=== PATIENT | male | born 1995 | race Caucasian/White ===

== ENCOUNTER 2019-01-11 10:54 | Emergency (ER) | payer BC ==
[2019-01-11 11:43] LABS: Urine Blood NEGATIVE (NEG); Urine Glucose 2+ (NEG); Urine Protein NEGATIVE (NEG); Urine pH 5.5 (5.0-7.0)
--- NOTE | 2019-01-11 11:59 | ER ---
Nurse's Notes [facility] Name: Greyson Correia Age: 23 yrs Sex: Male : 1995 Arrival Date: 01/11/2019 Time: 11:04 Bed 12 Private MD: Diagnosis: Muscle spasm of back Presentation: 01/11 11:10 Presenting complaint: Right sided low back pain and headache x 2 weeks. Transition of hb care: patient was not received from another setting of care. Onset of symptoms was December 26, 2018. Risk Assessment: Do you want to hurt yourself or someone else? Patient reports no desire to harm self or others. Care prior to arrival: None. 11:10 Method Of Arrival: Ambulatory hb 11:10 Acuity: ROGELIO 4 hb 11:45 Initial Sepsis Screen: Does the patient meet any 2 criteria? No. Patient's initial ss sepsis screen is negative. Does the patient have a suspected source of infection? No. Patient's initial sepsis screen is negative. Historical: - Allergies: 11:12 No Known Allergies; hb - Home Meds: 11:12 humalog - pump [Active]; hb - PMHx: 11:12 Diabetes - IDDM; hb - PSHx: 11:12 Insulin Pump; hb - Immunization history:: Adult Immunizations up to date. - Social history:: Smoking status: Patient uses tobacco products, smokes one-half pack cigarettes per day. - Ebola Screening: : No symptoms or risks identified at this time. Screenin:30 Abuse screen: Denies threats or abuse. Denies injuries from another. Nutritional ss screening: No deficits noted. Tuberculosis screening: Never had TB. Fall Risk None identified. Assessment: 11:45 General: Appears in no apparent distress. comfortable, Behavior is calm, cooperative. ss Pain: Complains of pain in right low back Pain currently is 3 out of 10 on a pain scale. Neuro: Level of Consciousness is awake, alert, obeys commands, Oriented to person, place, time, situation. Cardiovascular: Capillary refill < 3 seconds is brisk in bilateral fingers. Respiratory: Airway is patent Respiratory effort is even, unlabored, Respiratory pattern is regular, symmetrical. GI: Abdomen is non-distended, Patient currently denies diarrhea, nausea, vomiting. : No signs and/or symptoms were reported regarding the genitourinary system. Denies burning with urination, urinary frequency. EENT: Nares are clear Oral mucosa is moist. Throat is clear. Derm: Skin is intact, is healthy with good turgor, Skin is dry, Skin is pink, warm \T\ dry. normal. Musculoskeletal: Circulation, motion, and sensation intact. Range of motion: intact in all extremities, Swelling absent. 12:07 Reassessment: Patient appears in no apparent distress at this time. Patient and/or ss family updated on plan of care and expected duration. Pain level reassessed. Patient is alert, oriented x 3, equal unlabored respirations, skin warm/dry/pink. Vital Signs: 11:12 BP 138 / 93; Pulse 104; Resp 16; Temp 98.4; Pulse Ox 98% on R/A; Weight 68.04 kg; hb Height 5 ft. 9 in. (175.26 cm); Pain 3/10; 11:12 Body Mass Index 22.15 (68.04 kg, 175.26 cm) hb ED Course: 11:04 Patient arrived in ED. mr 11:11 Triage completed. 11:12 Arm band placed on. 11:19 Vini Diaz PA is PHCP. [facility] 11:19 Robert Lowe MD is Attending Physician. jr 11:23 Ligia Montez, BRENDA is Primary Nurse. 12:07 No provider procedures requiring assistance completed. Patient did not have IV access ss during this emergency room visit. 14:30 Patient has correct armband on for positive identification. Placed in gown. Call light ss in reach. Administered Medications: No medications were administered Outcome: 11:58 Discharge ordered by . jrAyan 12:07 Discharged to home ambulatory. ss 12:07 Condition: good 12:07 Discharge instructions given to patient, family, Instructed on discharge instructions, follow up and referral plans. medication usage, Demonstrated understanding of instructions, follow-up care, medications. 12:07 Patient left the ED. ss Signatures: Wray, Alessia mr Ligia Montez, BRENDA RN Vini Diaz PA PA jr Sondra Green RN RN
--- NOTE | 2019-01-11 12:00 | EDPHYS ---
Physician Documentation [facility] Name: Greyson Correia Age: 23 yrs Sex: Male : 1995 Arrival Date: 01/11/2019 Time: 11:04 Bed 12 Private MD: ED Physician Robert Lowe HPI: 01/11 11:54 This 23 yrs old Male presents to ER via Ambulatory with complaints of Back jr8 Pain. 11:54 The patient presents with pain that is acute. The symptoms are located in the right mid jr8 back and right low back. Onset: The symptoms/episode began/occurred gradually, 2 week(s) ago. The pain does not radiate. Associated signs and symptoms: The patient has no apparent associated signs or symptoms. The problem was sustained from unknown cause. Modifying factors: The patient symptoms are alleviated by nothing, the patient symptoms are aggravated by standing, walking. Severity of symptoms: At their worst the symptoms were moderate, in the emergency department the symptoms have improved, moderately. The patient has not experienced similar symptoms in the past. The patient has not recently seen a physician. Sudden onset pain to right back from unknown cause. Last thing patient could think of that could have caused pain was long car ride with sleeping in odd positions. Has been trying OTC medication without relief . Historical: - Allergies: 11:12 No Known Allergies; hb - Home Meds: 11:12 humalog - pump [Active]; hb - PMHx: 11:12 Diabetes - IDDM; hb - PSHx: 11:12 Insulin Pump; hb - Immunization history:: Adult Immunizations up to date. - Social history:: Smoking status: Patient uses tobacco products, smokes one-half pack cigarettes per day. - Ebola Screening: : No symptoms or risks identified at this time. ROS: 11:54 Eyes: Negative for injury, pain, redness, and discharge, ENT: Negative for injury, jr8 pain, and discharge, Neck: Negative for injury, pain, and swelling, Cardiovascular: Negative for chest pain, palpitations, and edema, Respiratory: Negative for shortness of breath, cough, wheezing, and pleuritic chest pain, Abdomen/GI: Negative for abdominal pain, nausea, vomiting, diarrhea, and constipation, MS/Extremity: Negative for injury and deformity, Skin: Negative for injury, rash, and discoloration, Neuro: Negative for headache, weakness, numbness, tingling, and seizure. 11:54 Back: Positive for pain at rest, pain with movement, Negative for radiated pain. Exam: 11:54 Eyes: Pupils equal round and reactive to light, extra-ocular motions intact. Lids and jr8 lashes normal. Conjunctiva and sclera are non-icteric and not injected. Cornea within normal limits. Periorbital areas with no swelling, redness, or edema. ENT: Nares patent. No nasal discharge, no septal abnormalities noted. Tympanic membranes are normal and external auditory canals are clear. Oropharynx with no redness, swelling, or masses, exudates, or evidence of obstruction, uvula midline. Mucous membranes moist. Neck: Trachea midline, no thyromegaly or masses palpated, and no cervical lymphadenopathy. Supple, full range of motion without nuchal rigidity, or vertebral point tenderness. No Meningismus. Cardiovascular: Regular rate and rhythm with a normal S1 and S2. No gallops, murmurs, or rubs. Normal PMI, no JVD. No pulse deficits. Respiratory: Lungs have equal breath sounds bilaterally, clear to auscultation and percussion. No rales, rhonchi or wheezes noted. No increased work of breathing, no retractions or nasal flaring. Abdomen/GI: Soft, non-tender, with normal bowel sounds. No distension or tympany. No guarding or rebound. No evidence of tenderness throughout. Back: No spinal tenderness. No costovertebral tenderness. Full range of motion. Skin: Warm, dry with normal turgor. Normal color with no rashes, no lesions, and no evidence of cellulitis. MS/ Extremity: Pulses equal, no cyanosis. Neurovascular intact. Full, normal range of motion. Neuro: Awake and alert, GCS 15, oriented to person, place, time, and situation. Cranial nerves II-XII grossly intact. Motor strength 5/5 in all extremities. Sensory grossly intact. Cerebellar exam normal. Normal gait. Vital Signs: 11:12 BP 138 / 93; Pulse 104; Resp 16; Temp 98.4; Pulse Ox 98% on R/A; Weight 68.04 kg; hb Height 5 ft. 9 in. (175.26 cm); Pain 3/10; 11:12 Body Mass Index 22.15 (68.04 kg, 175.26 cm) hb MDM: 11:32 Patient medically screened. jr8 11:54 Data reviewed: vital signs, nurses notes, lab test result(s), and as a result, I will jr8 discharge patient. Data interpreted: Pulse oximetry: on room air is 98 %. Interpretation: normal. Counseling: I had a detailed discussion with the patient and/or guardian regarding: the historical points, exam findings, and any diagnostic results supporting the discharge/admit diagnosis, lab results, the need for outpatient follow up, a family practitioner, to return to the emergency department if symptoms worsen or persist or if there are any questions or concerns that arise at home. ED course: Could not illicit any pain on exam. Urine without leukocyte, blood, or protein. Recommended that we start him on NSAID and muscle relaxant for now. To give it through the weekend. If worse or not getting better to either come back or f/u with PCP. Family and patient good with this . 01/11 11:20 Order name: Urine Microscopic Only [facility] 01/11 11:38 Order name: Urine Dipstick--Ancillary (enter results) bd 01/11 11:20 Order name: Urine Dipstick-Ancillary (obtain specimen); Complete Time: 11:35 jr8 Administered Medications: No medications were administered Disposition: 18:54 Co-signature as Attending Physician, Robert Lowe MD Signing chart for administrative ps1 purposes. Available for consultation in ED. . Disposition: 01/11/19 11:58 Discharged to Home. Impression: Muscle spasm of back. - Condition is Stable. - Discharge Instructions: Back Pain, Adult, Muscle Cramps and Spasms, Back Exercises, Asst-ri-Tqht, Heat Therapy. - Prescriptions for meloxicam 15 mg Oral tablet - take 1 tablet by ORAL route once daily As needed; 20 tablet. Zanaflex 4 mg Oral Tablet - take 1 tablet by ORAL route every 8 hours As needed; 20 tablet. - Work release form, Medication Reconciliation Form, Thank You Letter, Antibiotic Education, Prescription Opioid Use form. - Follow up: Private Physician; When: 1 week; Reason: Recheck today's complaints, Continuance of care, Re-evaluation by your physician. - Problem is new. - Symptoms have improved. Signatures: Dispatcher [facility] Ligia Montez RN RN Vini Dawn PA PA jr8 Sondra Green, RN RN Robert Lowe MD MD ps1 Corrections: (The following items were deleted from the chart) 12:07 11:58 01/11/2019 11:58 Discharged to Home. Impression: Muscle spasm of back. Condition ss is Stable. Forms are Medication Reconciliation Form, Thank You Letter, Antibiotic Education, Prescription Opioid Use. Follow up: Private Physician; When: 1 week; Reason: Recheck today's complaints, Continuance of care, Re-evaluation by your physician. Problem is new. Symptoms have improved. jr8
[2019-01-11 12:11] LABS: Urine Bacteria <20 /HPF (NONE SEEN); Urine Culture Reflex Order NOT NEEDED; Urine Mucus SLIGHT /HPF (NONE SEEN); Urine RBC <5 /HPF (NONE SEEN)
[2019-01-11 12:49] VITALS: BP 138/93; TEMP 98.4; O2SAT 98
== END 2019-01-11 12:07 | disposition home or self-care (01) ==
LOC: ER 10:54
DX: M62.830 Muscle spasm of back (principal); F17.210 Nicotine dependence, cigarettes, uncomplicated; E11.8 Type 2 diabetes mellitus with unspecified complications; Z79.4 Long term (current) use of insulin
CPT/HCPCS: 81003; 81015; 99281

== ENCOUNTER 2019-01-14 10:11 | Emergency (ER) | payer BC ==
--- OUTSIDE RECORDS SUMMARY | 2019-01-14 10:13 | XMS REPORT | Summary of Care ---
:1995 Author Organization [facility] Address [address] [place] [address] Care Team Providers Name Role Phone Pcp, Patient Does Not Have A Primary Care Provider Reason for Visit Reason Comments Follow-up Diabetes Mellitus I Encounter Details Date Type Department Care Team Description 09/07/2018 Office Visit [facility] Sony England MD Uncontrolled type 1 diabetes mellitus with hyperglycemia (Primary Dx); Endocrinology- [facility] Professional Office [address] [phone] [address] [place], [place] (Fax) [phone] Allergies No Known Allergiesdocumented as of this encounter (statuses as of 09/22/2018) Medications Medication Sig Dispensed Refills Start Date End Date Status ONETOUCH ULTRA Use as directed 4 400 Strip 1 05/10/2018 Active BLUE TEST STRIP time a day stripIndications: Uncontrolled type 1 diabetes mellitus with hyperglycemia ONETOUCH ULTRASOFT Use as directed 4 400 Each 1 05/10/2018 Active LANCETS times a day MiscIndications: Uncontrolled type 1 diabetes mellitus with hyperglycemia SHRADDHA PEN NEEDLE 32 Use as directed 4 400 Each 1 05/10/2018 Active gauge x 5/32" times a day NdleIndications: Uncontrolled type 1 diabetes mellitus with hyperglycemia glucagon 1 mg/mL Use PRN when 1 mg 0 05/10/2018 Active SolR having injectionIndicatio hypoglycemia ns: Uncontrolled type 1 diabetes mellitus with hyperglycemia, Hypoglycemia FREESTYLE DAPHNE 14 1 Kit every 14 6 Kit 1 05/10/2018 Active DAY SENSOR (fourteen) days. KitIndications: Uncontrolled type 1 diabetes mellitus with hyperglycemia, Hypoglycemia FREESTYLE DAPHNE 14 1 Kit every 14 1 Each 0 05/10/2018 Active DAY READER (fourteen) days. MiscIndications: Uncontrolled type 1 diabetes mellitus with hyperglycemia, Hypoglycemia LANTUS SOLOSTAR inject 22 Units 9 mL 3 06/07/2018 Active U-100 INSULIN 100 under the skin at unit/mL (3 mL) bedtime. injectionIndicatio ns: Uncontrolled type 1 diabetes mellitus with hyperglycemia HUMALOG KWIKPEN inject 2-15 Units 9 mL 1 09/07/2018 Active INSULIN 200 under the skin 3 unit/mL (3 mL) (three) times InPnIndications: daily before Uncontrolled type meals. Per 1 diabetes Sliding Scale mellitus with Inject under skin hyperglycemia 2-15 units before meal TIDAC up to total 50 units per day insulin lispro 100 Per Sliding Scale 12 mL 3 06/07/2018 Discontinued unit/mL pen Inject under skin 9 injectorIndication 2-12 units s: Uncontrolled before meal TIDAC type 1 diabetes up to total 40 mellitus with units per day hyperglycemia documented as of this encounter (statuses as of 09/22/2018) Active Problems Not on filedocumented as of this encounter (statuses as of 09/22/2018) Social History Tobacco Use Types Packs/Day Years Used Date Never Smoker Smokeless Tobacco: Never Used Alcohol Use Drinks/Week oz/Week Comments No Sex Assigned at Date Recorded Not on file Job Start Date Occupation Industry Not on file Not on file Not on file Travel History Travel Start Travel End No recent travel history available. documented as of this encounter Last Filed Vital Signs Vital Sign Reading Time Taken Comments Blood Pressure 123/87 09/07/2018 3:42 PM CDT Pulse 106 09/07/2018 3:42 PM CDT Temperature - - Respiratory Rate 16 09/07/2018 3:42 PM CDT Oxygen Saturation - - Inhaled Oxygen Concentration - - Weight 64.9 kg (143 lb) 09/07/2018 3:42 PM CDT Height 175.3 cm (5' 9") 09/07/2018 3:42 PM CDT Body Mass Index 21.12 09/07/2018 3:42 PM CDT documented in this encounter Progress Notes Sony England MD - 09/07/2018 3:30 PM CDT CC follow up for type I DM HPI Patient is a 22 year old /White male who is here today for Diabetes Mellitus Type 1. Patient's diabetes is complicated by atherogenic diet. DM was diagnosed at age of [age] years old. Reports poor control in DM with A1C >10 in past several years, secondary to noncompliance with diet and skipping medication at times. He relocated to [place] with family in 08/2017 and established diabetic care with [facility] on 05/10/2018 His most recent A1c was at 10.9 in [place] and patient was advised to change Lantus to 22 units at morning and change Humalog sliding scale before meals 1 unit per 8 grams carbohydrate plus minus 1 unit per 40 mg % when suagr >120. Patient has no acute problems today. Patient was changed to [employer] CGM in 05/2018. He brought CGM to clinic but patient just erased all data this morning. Per recalls Average blood sugar at breakfast 200s, post dinner 300s. The patient is not having problems at midnight with hypoglycemia. Patient is semicompliant with medication regimen. he still skips Humalog dose 1-2 times a day . Patient is noncompliant with diet/exercise regimen. He work at [employer] and eat high carbs food/drinks soda/ juice DIABETIC HEALTH MAINTENANCE Last Ophthalmology visit was more than a year. Patient on OLGA/ARB therapy - Not Applicable Patient on ASA therapy - Not Applicable. Patient on Statin/Fibrate therapy - Not Applicable. Patient received Flu shot this season - No. Patient instructed about daily feet exams, last sensation exam was 05/10/18 . Patient has received Nutrition/Diet/Diabetes Education on 05/10/18 HISTORY Past Medical History: Diagnosis Date Diabetes mellitus No past surgical history per patient reported Family History Problem Relation Age of Onset No Significant Medical Problems Mother Social History Socioeconomic History Marital status: Single Spouse name: Not on file Number of children: Not on file Years of education: Not on file Highest education level: Not on file Occupational History Not on file Social Needs Financial resource strain: Not on file Food insecurity: Worry: Not on file Inability: Not on file Transportation needs: Medical: Not on file Non-medical: Not on file Tobacco Use Smoking status: Never Smoker Smokeless tobacco: Never Used Substance and Sexual Activity Alcohol use: No Drug use: No Sexual activity: Not on file Lifestyle Physical activity: Days per week: Not on file Minutes per session: Not on file Stress: Not on file Relationships Social connections: Talks on phone: Not on file Gets together: Not on file Attends restorationist service: Not on file Active member of club or organization: Not on file Attends meetings of clubs or organizations: Not on file Relationship status: Not on file Intimate partner violence: Fear of current or ex partner: Not on file Emotionally abused: Not on file Physically abused: Not on file Forced sexual activity: Not on file Other Topics Concern Not on file Social History Narrative Not on file REVIEW OF SYSTEMS Constitutional: denies weight change, + fatigue Eyes: denies blurry vision, denies diplopia and denies pain. Neck: denies pain, denies swollen glands Cardiovascular: denies chest pain , denies irregular pulse and denies palpitations. Respiratory: denies dyspnea on exertion and denies shortness of breath. Gastrointestinal: denies abdominal pain, denies constipation and denies diarrhea. Genitourinary: denies burning and denies dysuria. Musculoskeletal: denies back pain, denies muscle pain and denies weakness. Skin: denies dry skin and denies hair changes. Neuro: denies numbness , denies tingling and denies tremor. Psych: negative. Endocrine: denies goiter, denies hair loss, denies intolerance to cold, denies intolerance to heat, denies polydipsia, denies polyphagia and denies polyuria. PHYSICAL EXAM No results found for: POCGLU CREATININE-Q (mg/dL) Date Value 05/11/2018 0.73 CHOLESTEROL, TOTAL-Q (mg/dL) Date Value 05/11/2018 280 (H) HDL CHOLESTEROL-Q (mg/dL) Date Value 05/11/2018 98 GVR-[id number]-W (mg/dL (calc)) Date Value 05/11/2018 137 (H) TRIGLYCERIDES-Q (mg/dL) Date Value 05/11/2018 292 (H) No results found for: ALBUCREAT, UALBCREAT POCT HBA1C (%) Date Value 09/07/2018 12.4 05/10/2018 10.9 (A) HEMOGLOBIN A1c-Q (% of total Hgb) Date Value 05/11/2018 11.0 (H) BP 123/87 (BP Location: Left arm, Patient Position: Sitting, BP CUFF SIZE: Adult Large) | Pulse 106 | Resp 16 | Ht 5' 9" (1.753 m) | Wt 143 lb (64.9 kg ) | BMI 21.12 kg/m General: alert, oriented times three, no apparent distress, appearing age appropriate. Skin: skin color and turgor are normal Head: normocephalic, no masses, lesions, tenderness or abnormalities. Eyes: anicteric sclera, pupils are equally round and reactive to light. Neck: no acanthosis nigricans Thyroid: normal size and consistency to palaption Lungs: good diaphragmatic excursion, lungs clear to auscultation bilaterally. Heart: regular rate and rhythm, no murmurs, gallops or rubs. Abdomen: abdomen soft, non-tender, normal active bowel sounds, Neuro: unremarkable without focal findings. Extremities/Musculoskeletal: no cyanosis, no edema . Component Latest Ref Rng & Units 05/11/2018 10:24 AM C-PEPTIDE-Q 0.80 - 3.85 ng/mL <0.10 (L) Component Latest Ref Rng & Units 05/11/2018 10:24 AM GLUTAMIC ACID DECARBOXYLASE 65 AB-Q <5 IU/mL >250 (H) ASSESSMENT/PLAN 1. Uncontrolled type 1 diabetes mellitus with hyperglycemia -A1C (target=6-7%): 10.9 (3)--12.4(08/26) poor control secondary to noncompliance as in HPI -glucose range: compliance with CGM was questionable. Hyperglycemia most time -reports no further hypoglycemia -complication: none -diet: fast food when he is at [place] -exercise: limited by busy work schedule Plan -reinterated to scan glucose 5-6 times fasting alternating 2 hours post meals -urged compliance with diet/exercise - recommended to attend nutrition education, he deferred - introduced insulin pump and provided brochures. He will contact rep -unable to change regimen given no glucose log - LANTUS SOLOSTAR U-100 INSULIN 100 unit/mL (3 mL) injection; inject 22 Units under the skin at bedtime. - HUMALOG KWIKPEN INSULIN 200 unit/mL (3 mL) InPn; inject 2-15 Units under the skin 3 (three) times daily before meals. Per Sliding Scale Inject under skin 2- 15 units before meal TIDAC up to total 50units per day Dispense: 9 mL; Refill : 1 - POCT HEMOGLOBIN A1C TEST 2. Hypoglycemia Improving after resuming CGM EDUCATION Counseled on this visit about:Glycemic/hemoglobin A1C targets Importance of adhering to the medical regimen outlined above Adjusting insulin based on blood sugar readings Insulin pump information Glucose monitoring and importance Diet education Preventing and preparing for hypoglycemic events Proper foot care Daily exercise plan documented in this encounter Plan of Treatment Date Type Specialty Care Team Description 01/18/2019 Office Visit Endocrinology Diabetes & Sony England MD Metabolism [address] [place] [address] [phone] Health Maintenance Due Date Last Done Comments VARICELLA VACCINES (1 of 2 - 13+ 2006 2-dose series) DTaP,Tdap,and Td Vaccines (1 - 2012 Tdap) INFLUENZA VACCINE (#1) 2018 HPV VACCINES Aged Out No longer eligible based on patient's age to complete this topic PNEUMOCOCCAL 0-64 YEARS COMBINED Aged Out No longer eligible based on SERIES patient's age to complete this topic documented as of this encounter Procedures Procedure Name Priority Date/Time Associated Diagnosis Comments POCT HEMOGLOBIN A1C Routine 09/07/2018 Uncontrolled type 1 Results for this TEST diabetes mellitus with procedure are in the hyperglycemia results section. documented in this encounter Results POCT HEMOGLOBIN A1C TEST (09/07/2018) POCT HBA1C 12.4 4 - 6 % Specimen Blood - CAPILLARY documented in this encounter Visit Diagnoses Diagnosis Uncontrolled type 1 diabetes mellitus with hyperglycemia - Primary Hypoglycemia Hypoglycemia, unspecified documented in this encounter Insurance Payer Benefit Plan Subscriber ID Effective Dates Phone Address Type / Group [facility] [id number] 2016-Prese [phone] [address] [id number] [place] [address] documented as of this encounter
--- OUTSIDE RECORDS SUMMARY | 2019-01-14 10:13 | XMS REPORT | Summary of Care ---
:1995 Author Organization [facility] Address [address] [place] [address] Care Team Providers Name Role Phone Pcp, Patient Does Not Have A Primary Care Provider Reason for Visit Reason Comments Appointment Encounter Details Date Type Department Care Team Description 10/24/2018 Telephone [facility] Endocrinology- Sony England MD Appointment [address] Professional Office [place], [place] [id number] [place] [address] [phone] [place] [address] Allergies No Known Allergiesdocumented as of this encounter (statuses as of 10/24/2018) Medications Medication Sig Dispensed Refills Start Date End Date Status ONETOUCH ULTRA BLUE Use as directed 4 400 Strip 1 05/10/2018 Active TEST STRIP time a day stripIndications: Uncontrolled [...] diabetes mellitus with hyperglycemia glucagon 1 mg/mL SolR Use PRN when having 1 mg 0 05/10/2018 Active injectionIndications: hypoglycemia Uncontrolled type 1 diabetes mellitus with hyperglycemia, Hypoglycemia FREESTYLE DAPHNE 14 1 Kit every 14 6 Kit 1 05/10/2018 Active DAY SENSOR (fourteen) days. KitIndications: Uncontrolled type 1 diabetes mellitus with hyperglycemia, Hypoglycemia FREESTYLE DAPHNE 14 1 Kit every 14 1 Each 0 05/10/2018 Active DAY READER (fourteen) days. MiscIndications: Uncontrolled type 1 diabetes mellitus with hyperglycemia, Hypoglycemia LANTUS SOLOSTAR U-100 inject 22 Units 9 mL 3 06/07/2018 Active INSULIN 100 unit/mL under the skin at (3 mL) bedtime. injectionIndications: Uncontrolled type 1 diabetes mellitus with hyperglycemia HUMALOG KWIKPEN inject 2-15 Units 9 mL 1 09/07/2018 Active INSULIN 200 unit/mL under the skin 3 (3 mL) (three) times daily InPnIndications: before meals. Per Uncontrolled type 1 Sliding Scale diabetes mellitus Inject under skin with hyperglycemia 2-15 units before meal TIDAC up to total 50 units per day documented as of this encounter (statuses as of 10/24/2018) Active Problems Not on filedocumented as of this encounter (statuses as of 10/24/2018) Social History Tobacco Use Types Packs/Day Years Used Date Never Smoker Smokeless Tobacco: Never Used Alcohol Use Drinks/Week oz/Week Comments No Sex Assigned at Date Recorded Not on file Job Start Date Occupation Industry Not on file Not on file Not on file Travel History Travel Start Travel End No recent travel history available. documented as of this encounter Last Filed Vital Signs Not on filedocumented in this encounter Plan of Treatment Date Type Specialty Care Team Description 01/18/2019 Office Visit Endocrinology Diabetes & EnglandSony MD Metabolism [facility] [place] [address] [phone] Health Maintenance Due Date Last Done Comments [...] this topic documented as of this encounter Results Not on filedocumented in this encounter Insurance Payer Benefit Plan Subscriber ID Effective Dates Phone Address Type / Group [facility] [id number] 2016-Prese [phone] [address] PPO/POS [place] [id number] [place] [address] documented as of this encounter
--- OUTSIDE RECORDS SUMMARY | 2019-01-14 10:13 | XMS REPORT | Summary of Care ---
:1995 Author Organization [facility] - Health Address [address] [place] [address] Care Team Providers Name Role Phone Pcp, Patient Does Not Have A Primary Care Provider Encounter Details Date Type Department Care Team Description 09/07/2018 Orders Only [facility] Doctor Unassigned, No [address] [facility] [place] [address] [address] [place] [address] Allergies No Known Allergiesdocumented as of this encounter (statuses as of 09/07/2018) Medications Medication Sig Dispensed Refills Start Date [...] type 1 diabetes mellitus with hyperglycemia, Hypoglycemia insulin lispro 100 Per Sliding Scale 12 mL 3 06/07/2018 Active unit/mL pen Inject under skin injectorIndications: 2-12 units before Uncontrolled type 1 meal TIDAC up to diabetes mellitus total 40 units per with hyperglycemia day LANTUS SOLOSTAR U-100 inject 22 Units 9 mL 3 06/07/2018 Active INSULIN 100 unit/mL under the skin at (3 mL) bedtime. injectionIndications: Uncontrolled type 1 diabetes mellitus with hyperglycemia documented as of this encounter (statuses as of 09/07/2018) Active Problems Not on filedocumented as of this encounter (statuses as of 09/07/2018) Social History Tobacco Use Types Packs/Day Years [...] Treatment Date Type Specialty Care Team Description 09/07/2018 Office Visit Endocrinology Diabetes & EnglandSony MD Arrived Metabolism [address] [place] [address] [phone] Health Maintenance Due Date Last Done Comments VARICELLA VACCINES (1 of 2 - 13+ 2006 2-dose series) DTaP,Tdap,and Td Vaccines (1 - 2012 Tdap) INFLUENZA VACCINE 10/09/2018 HPV VACCINES Aged Out No longer eligible based on patient's age to complete this topic PNEUMOCOCCAL 0-64 YEARS COMBINED Aged Out No longer eligible based on SERIES patient's age to complete this topic documented as of this encounter Procedures Procedure Name Priority Date/Time Associated Diagnosis Comments NO SHOW OR MISSED Routine 09/07/2018 3:12 PM APPOINTMENT POLICY CDT ACKNOWLEDGEMENT documented in this encounter Results Not on filedocumented in this encounter Insurance Payer Benefit Plan Subscriber ID Effective Dates Phone Address Type / Group [facility] [id number] 2016-Presjames [phone] [address] PPO/POS [place] nt [id number] [place] [address] documented as of this encounter
--- OUTSIDE RECORDS SUMMARY | 2019-01-14 10:13 | XMS REPORT | Summary of Care ---
:1995 Author Organization [facility] Address [address] [place] [address] Care Team Providers Name Role Phone Pcp, Patient Does Not Have A Primary Care Provider Reason for Visit Reason Comments Forms Omnipod CMN Encounter Details Date Type Department Care Team Description 09/16/2018 Telephone [facility] Sony England MD Forms (Omnipod CMN) Endocrinology- [address] Professional Office [address] [address] [address] [place] [address] [phone] Allergies No Known Allergiesdocumented as of this encounter (statuses as of 09/16/2018) Medications Medication Sig Dispensed Refills Start Date [...] as of this encounter (statuses as of 09/16/2018) Active Problems Not on filedocumented as of this encounter (statuses as of 09/16/2018) Social History Tobacco Use Types Packs/Day Years [...] Visit Endocrinology Diabetes & EnglandSony MD Metabolism [address] [place], [place] [phone] Health Maintenance Due Date Last Done Comments [...] Effective Dates Phone Address Type / Group [id number]-[place] [phone] [address] PPO/POS [facility] [id number] [place] [address] documented as of this encounter
--- OUTSIDE RECORDS SUMMARY | 2019-01-14 10:13 | XMS REPORT | Summary of Care ---
:1995 Author Organization [facility] Address [address] [place] [address] Care Team Providers Name Role Phone Pcp, Patient Does Not Have A Primary Care Provider Reason for Visit Reason Comments Rx Concern/Question Encounter Details Date Type Department Care Team Description 10/17/2018 Telephone [facility] Sony Mccall MD Rx Concern/Question Endocrinology- [address] Professional Office [address] [address] [address] [place] [address] [phone] Allergies No Known Allergiesdocumented as of this [...] Endocrinology Diabetes & EnglandSony MD Metabolism [address] [place] [address] [phone] Health Maintenance Due Date Last Done Comments [...] Effective Dates Phone Address Type / Group [facility] [id number] 2016-Prese [phone] [address] PPO/POS [facility] [id number] [place] [address] documented as of this encounter
--- OUTSIDE RECORDS SUMMARY | 2019-01-14 10:13 | XMS REPORT | Summary of Care ---
:1995 Author Organization [facility] - Health Address [address] [place] [address] Care Team Providers Name Role Phone Pcp, Patient Does Not Have A Primary Care Provider Encounter Details Date Type Department Care Team Description 09/16/2018 Orders Only [facility] Doctor Unassigned, No [address] [facility] [place] [address] [address] [place] [address] Allergies No Known Allergiesdocumented as of this encounter (statuses as of 10/06/2018) Medications Medication Sig Dispensed Refills Start Date [...] as of this encounter (statuses as of 10/06/2018) Active Problems Not on filedocumented as of this encounter (statuses as of 10/06/2018) Social History Tobacco Use Types Packs/Day Years [...] Endocrinology Diabetes & EnglandSony MD Metabolism [address] [place] [address] [phone] Health Maintenance Due Date Last Done Comments [...] Procedure Name Priority Date/Time Associated Diagnosis Comments DME/SUPPLY JUSTIFICATION Routine 09/16/2018 12:01 AM CDT documented in this encounter Results Not on filedocumented in this encounter Insurance Payer Benefit Plan Subscriber ID Effective Dates Phone Address Type / Group [facility] [id number] 2016-e [phone] [address] PPO/POS [place] nt [id number] [place] [address] documented as of this encounter
--- OUTSIDE RECORDS SUMMARY | 2019-01-14 10:13 | XMS REPORT | Summary of Care ---
:1995 Author Organization [facility] Address [address] [place] [address] Care Team Providers Name Role Phone Pcp, Patient Does Not Have A Primary Care Provider Reason for Visit Reason Comments Follow-up Diabetes Mellitus I Encounter Details Date Type Department Care Team Description 09/07/2018 Office Visit [facility] Sony England MD Uncontrolled type 1 diabetes mellitus with hyperglycemia (Primary Dx); Endocrinology- [facility] Professional Office [address] [phone] [address] [place], [place] (Fax) [address] Allergies No Known Allergiesdocumented [...] skipping medication at times. He relocated to [place] with family in 08/2017 and established diabetic care with [facility] on 05/10/2018 His most recent A1c was at 10.9 in [place] and patient was advised to change Lantus to 22 units at morning and change Humalog sliding scale before meals 1 unit per 8 grams carbohydrate plus minus 1 unit per 40 mg % when suagr >120. Patient has no acute problems today. Patient was changed to [employer] CGM in 05/2018. He brought CGM to clinic but patient just erased all data this morning. Per recalls Average blood sugar at breakfast 200s, post dinner 300s. The patient is not having problems at midnight with hypoglycemia. Patient is semicompliant with medication regimen. he still skips Humalog dose 1-2 times a day . Patient is noncompliant with diet/exercise regimen. He work at [employer] and eat high carbs food/drinks soda/ juice [...] file Gets together: Not on file Attends advent service: Not on file Active member of [...] HDL CHOLESTEROL-Q (mg/dL) Date Value 05/11/2018 98 [id number] (mg/dL (calc)) Date Value 05/11/2018 137 (H) [...] Diabetes & Sony England MD Metabolism [address] [place] [address] [phone] Health Maintenance Due Date Last Done Comments [...] Effective Dates Phone Address Type / Group [facility] [id number] 2016-Prese [phone] [address] PPO/POS [place] nt [id number] [place] [address] documented as of this encounter
--- OUTSIDE RECORDS SUMMARY | 2019-01-14 10:13 | XMS REPORT | Summary of Care ---
:1995 Author Organization [facility] Address [address] [place] [address] Care Team Providers Name Role Phone Pcp, Patient Does Not Have A Primary Care Provider Reason for Visit Reason Comments Rx Concern/Question Encounter Details Date Type Department Care Team Description 10/18/2018 Telephone [facility] Sony Mccall MD Rx Concern/Question Endocrinology- [address] Professional Office [address] [address] [address] [place] [address] [phone] Allergies No Known Allergiesdocumented as of this [...] Endocrinology Diabetes & EnglandSony MD Metabolism [address] [place] [address] [phone] Health Maintenance Due Date Last Done Comments [...] Effective Dates Phone Address Type / Group [facility] [id number] 2016-Prese [phone] [address] PPO/POS [facility] 7 [id number] [place] [address] documented as of this encounter
--- OUTSIDE RECORDS SUMMARY | 2019-01-14 10:14 | XMS REPORT | Summary of Care ---
:1995 Author Organization [facility] Address [address] [place] [address] Care Team Providers Name Role Phone Pcp, Patient Does Not Have A Primary Care Provider Reason for Visit Reason Comments Refill Request Encounter Details Date Type Department Care Team Description 10/25/2018 Refill [facility] Endocrinology- Sony England MD Refill Request [address] Professional Office [place], [place] [address] [place] [address] [address] [phone] [place] [address] Allergies No Known Allergiesdocumented as of this encounter (statuses as of 10/25/2018) Medications Medication Sig Dispensed Refills Start Date [...] up to total 50 units per day FREESTYLE DAPHNE 14 1 KIT EVERY 14 6 Kit 0 10/25/2018 Active DAY SENSOR (FOURTEEN) DAYS. KitIndications: Uncontrolled type 1 diabetes mellitus with hyperglycemia, Hypoglycemia FREESTYLE DAPHNE 14 1 Kit every 14 6 Kit 1 05/10/2018 Discontinued DAY SENSOR (fourteen) days. 9 KitIndications: Uncontrolled type 1 diabetes mellitus with hyperglycemia, Hypoglycemia documented as of this encounter (statuses as of 10/25/2018) Active Problems Not on filedocumented as of this encounter (statuses as of 10/25/2018) Social History Tobacco Use Types Packs/Day Years [...] Diabetes & Sony England MD Metabolism [address] [place], [place] [id number] Health Maintenance Due Date Last Done Comments [...] Results Not on filedocumented in this encounter Visit Diagnoses Diagnosis Uncontrolled type 1 diabetes mellitus with hyperglycemia Hypoglycemia Hypoglycemia, unspecified documented in this encounter Insurance Payer Benefit Plan Subscriber ID Effective Dates Phone Address Type / Group [employer] [facility] [employer] [facility] [place] [id number] 2016-[place] [phone] [address] PPO/POS [place] nt [id number] [place] [address] documented as of this encounter
--- OUTSIDE RECORDS SUMMARY | 2019-01-14 10:14 | XMS REPORT ---
:1995 [facility] Address [address] [place] [address] Dr. Ceja [address] [place] [address] Care Team Providers Name Role Phone Unavailable Unavailable Unavailable Problems This patient has no known problems. Allergies, Adverse Reactions, Alerts This patient has no known allergies or adverse reactions. Medications This patient has no known medications.
[2019-01-14 11:54] LABS: Absolute Lymphocytes (CBC) 2.4 K/uL (0.7-4.9); Basophils % 0.7 % (0-1.3); Hematocrit 45.2 % (39.6-49.0); Lymphocytes % 52.3 % (15.3-44.8); MPV 6.9 fL (7.6-11.3); RBC Red Blood Cell Count 4.74 M/uL (4.33-5.43)
[2019-01-14 12:11] LABS: ALT/SGPT 39 U/L (12-78); AST/SGOT 19 U/L (15-37); Albumin 4.3 g/dL (3.4-5.0); Alkaline Phosphatase 93 U/L (45-117); BUN Blood Urea Nitrogen 22 mg/dL (7-18); Bicarbonate 29 mmol/L (21-32); Bilirubin Total 0.6 mg/dL (0.2-1.0); Glucose Level 189 mg/dL (74-106); Potassium 4.1 mmol/L (3.5-5.1); Protein, Total 7.4 g/dL (6.4-8.2); Sodium Level 139 mmol/L (136-145)
[2019-01-14] MEDS ORDERED: DIAZEPAM 2 MG TABLET ONE (13:33)
[2019-01-14] MEDS ORDERED: KETOROLAC 30 MG/ML INJ ONE (13:33)
--- NOTE | 2019-01-14 13:57 | ER ---
Nurse's Notes [facility] Name: Greyson Correia Age: 23 yrs Sex: Male : 1995 Arrival Date: 01/14/2019 Time: 10:15 Bed 13 Private MD: Diagnosis: Muscle spasm of back Presentation: 01/14 10:30 Presenting complaint: Patient states: upper back pain and pain all over for a couple iw weeks now. Transition of care: patient was not received from another setting of care. Onset of symptoms was December 28, 2018. Risk Assessment: Do you want to hurt yourself or someone else? Patient reports no desire to harm self or others. Initial Sepsis Screen: Does the patient meet any 2 criteria? No. Patient's initial sepsis screen is negative. Does the patient have a suspected source of infection? No. Patient's initial sepsis screen is negative. Care prior to arrival: None. 10:30 Method Of Arrival: Ambulatory iw 10:30 Acuity: ROGELIO 3 iw Historical: - Allergies: 10:31 No Known Allergies; iw - Home Meds: 10:31 humalog - pump [Active]; iw - PMHx: 10:31 Diabetes - IDDM; iw - PSHx: 10:31 None; iw - Immunization history:: Adult Immunizations not up to date. - Social history:: Smoking status: Patient uses tobacco products, smokes one-half pack cigarettes per day. - Ebola Screening: : Patient negative for fever greater than or equal to 101.5 degrees Fahrenheit, and additional compatible Ebola Virus Disease symptoms Patient denies exposure to infectious person Patient denies travel to an Ebola-affected area in the 21 days before illness onset No symptoms or risks identified at this time. Screenin:40 Abuse screen: Denies threats or abuse. Denies injuries from another. Nutritional ca1 screening: No deficits noted. Tuberculosis screening: No symptoms or risk factors identified. Fall Risk None identified. Assessment: 10:40 General: Appears in no apparent distress. comfortable, Behavior is calm, cooperative, ca1 appropriate for age. Pain: Complains of pain in all over Pain currently is 7 out of 10 on a pain scale. Pain began 2 weeks ago but has gotten worse in the past few days. Neuro: Level of Consciousness is awake, alert, obeys commands, Oriented to person, place, time, situation. Cardiovascular: Heart tones S1 S2 present Capillary refill < 3 seconds Patient's skin is warm and dry. Respiratory: Airway is patent Respiratory effort is even, unlabored, Respiratory pattern is regular, symmetrical, Breath sounds are clear bilaterally. Denies cough. GI: Abdomen is flat, non-distended, Bowel sounds present X 4 quads. Abd is soft and non tender X 4 quads. Patient currently denies abdominal pain, cramping, diarrhea, nausea, vomiting. : No deficits noted. No signs and/or symptoms were reported regarding the genitourinary system. EENT: No deficits noted. No signs and/or symptoms were reported regarding the EENT system. Denies nasal congestion. Derm: Skin is intact, is healthy with good turgor, Skin is pink, warm \T\ dry. Musculoskeletal: Circulation, motion, and sensation intact. Capillary refill < 3 seconds, Range of motion: intact in all extremities. 11:31 Reassessment: Patient appears in no apparent distress at this time. Patient is alert, ca1 oriented x 3, equal unlabored respirations, skin warm/dry/pink. 12:30 Reassessment: Patient appears in no apparent distress at this time. Patient is alert, ca1 oriented x 3, equal unlabored respirations, skin warm/dry/pink. Followed up on urine. Attempted to urinate twice, unsuccessful. Provided water to drink. 13:19 Reassessment: Patient appears in no apparent distress at this time. Patient is alert, ca1 oriented x 3, equal unlabored respirations, skin warm/dry/pink. Still pending urine. Followed up. 14:13 Reassessment: Patient appears in no apparent distress at this time. Patient is alert, ca1 oriented x 3, equal unlabored respirations, skin warm/dry/pink. Mother reported pt did not get relief from pain meds given. Notified provider. Provider will talk to pt and mother before discharge. 14:50 Reassessment: NOAH Denis at bedside. ca1 Vital Signs: 10:31 BP 112 / 76; Pulse 85; Resp 16; Temp 97.4; Pulse Ox 100% on R/A; Weight 68.04 kg; iw Height 5 ft. 9 in. (175.26 cm); Pain 6/10; 11:31 BP 113 / 82; Pulse 79; Resp 16 S; Pulse Ox 100% on R/A; ca1 12:30 BP 121 / 86; Pulse 82; Resp 16 S; Pulse Ox 100% ; ca1 13:30 BP 111 / 74; Pulse 86; Resp 15 S; Pulse Ox 100% on R/A; ca1 14:46 BP 116 / 81; Pulse 79; Resp 14 S; Pulse Ox 100% on R/A; ca1 10:31 Body Mass Index 22.15 (68.04 kg, 175.26 cm) iw ED Course: 10:15 Patient arrived in ED. mr 10:31 Triage completed. iw 10:31 Arm band placed on. iw 10:36 Adeel Lopez NP is PHCP. pm1 10:36 Britton Shah MD is Attending Physician. pm1 10:40 Patient has correct armband on for positive identification. Bed in low position. Call ca1 light in reach. Side rails up X 1. Pulse ox on. NIBP on. Warm blanket given. 10:40 No provider procedures requiring assistance completed. ca1 10:41 Areli Martin RN is Primary Nurse. ca1 11:45 Initial lab(s) drawn, by wa, sent to lab. Inserted saline lock: 20 gauge in right ca1 antecubital area, using aseptic technique. Blood collected. 15:20 IV discontinued, intact, bleeding controlled, No redness/swelling at site. Pressure ca1 dressing applied. Administered Medications: 13:31 Drug: Valium 2 mg Route: PO; ca1 15:19 Follow up: Response: No adverse reaction; Pain is decreased ca1 13:32 Drug: TORadol - Ketorolac 15 mg Route: IVP; Site: right antecubital; ca1 15:19 Follow up: Response: No adverse reaction; Pain is decreased ca1 Outcome: 13:57 Discharge ordered by . pm1 15:20 Discharged to home ambulatory, with family. ca1 15:20 Condition: stable 15:20 Discharge instructions given to patient, Instructed on discharge instructions, follow up and referral plans. no drinking with medication, no driving heavy equipment, medication usage, Demonstrated understanding of instructions, follow-up care, medications, Prescriptions given X 1. 15:21 Patient left the ED. ca1 Signatures: Nils Alessia basurto Ann Figueroa RN RN iw Adeel Lopez NP LEAD APPLIER pm1 Areli Martin RN RN ca1
--- NOTE | 2019-01-14 13:57 | EDPHYS ---
Physician Documentation [facility] Name: Greyson Correia Age: 23 yrs Sex: Male : 1995 Arrival Date: 01/14/2019 Time: 10:15 Bed 13 Private MD: ED Physician Britton Shah HPI: 01/14 11:11 This 23 yrs old Male presents to ER via Ambulatory with complaints of Pain pm1 All Over. 11:11 The patient presents with pain that is acute. The symptoms are located in the left pm1 scapular area and right scapular area. Onset: The symptoms/episode began/occurred 3 week(s) ago. The pain does not radiate. Associated signs and symptoms: Pertinent positives: burning sensation to skin on chest and arms , Pertinent negatives: abdominal pain, chest pain, dysuria, fever, nausea, numbness, vomiting. The problem was sustained possibly from sleeping wrong in the car. Severity of symptoms: in the emergency department the symptoms are unchanged. The patient has been recently seen at the [facility] Emergency Department, three days ago for the same complaint.. Patient currently without pain to his back. Pain is now on his right shoulder muscles. Patient with family history of fibromyalgia. Historical: - Allergies: 10:31 No Known Allergies; iw - Home Meds: 10:31 humalog - pump [Active]; iw - PMHx: 10:31 Diabetes - IDDM; iw - PSHx: 10:31 None; iw - Immunization history:: Adult Immunizations not up to date. - Social history:: Smoking status: Patient uses tobacco products, smokes one-half pack cigarettes per day. - Ebola Screening: : Patient negative for fever greater than or equal to 101.5 degrees Fahrenheit, and additional compatible Ebola Virus Disease symptoms Patient denies exposure to infectious person Patient denies travel to an Ebola-affected area in the 21 days before illness onset No symptoms or risks identified at this time. ROS: 11:11 Constitutional: Negative for fever, chills, and weight loss, Eyes: Negative for injury, pm1 pain, redness, and discharge, ENT: Negative for injury, pain, and discharge, Neck: Negative for injury, pain, and swelling, Cardiovascular: Negative for chest pain, palpitations, and edema, Respiratory: Negative for shortness of breath, cough, wheezing, and pleuritic chest pain, Abdomen/GI: Negative for abdominal pain, nausea, vomiting, diarrhea, and constipation. 11:11 Skin: Negative for injury, rash, and discoloration, Neuro: Negative for headache, weakness, numbness, tingling, and seizure. 11:11 Back: Positive for of the left scapular area and right scapular area, pain. 11:11 MS/extremity: Positive for pain, of the right deltoid, Negative for decreased range of motion, deformity. Exam: 11:11 Constitutional: This is a well developed, well nourished patient who is awake, alert, pm1 and in no acute distress. Head/Face: Normocephalic, atraumatic. Eyes: Pupils equal round and reactive to light, extra-ocular motions intact. Lids and lashes normal. Conjunctiva and sclera are non-icteric and not injected. Cornea within normal limits. Periorbital areas with no swelling, redness, or edema. ENT: Nares patent. No nasal discharge, no septal abnormalities noted. Tympanic membranes are normal and external auditory canals are clear. Oropharynx with no redness, swelling, or masses, exudates, or evidence of obstruction, uvula midline. Mucous membranes moist. Neck: Trachea midline, no thyromegaly or masses palpated, and no cervical lymphadenopathy. Supple, full range of motion without nuchal rigidity, or vertebral point tenderness. No Meningismus. Chest/axilla: Normal chest wall appearance and motion. Nontender with no deformity. No lesions are appreciated. Cardiovascular: Regular rate and rhythm with a normal S1 and S2. No gallops, murmurs, or rubs. Normal PMI, no JVD. No pulse deficits. Respiratory: Lungs have equal breath sounds bilaterally, clear to auscultation and percussion. No rales, rhonchi or wheezes noted. No increased work of breathing, no retractions or nasal flaring. Abdomen/GI: Soft, non-tender, with normal bowel sounds. No distension or tympany. No guarding or rebound. No evidence of tenderness throughout. Back: No spinal tenderness. No costovertebral tenderness. Full range of motion. Skin: Warm, dry with normal turgor. Normal color with no rashes, no lesions, and no evidence of cellulitis. 11:11 Musculoskeletal/extremity: Extremities: grossly normal except: noted in the right deltoid: tenderness, There is no evidence of decreased ROM, deformity, ROM: intact in all extremities, Circulation is intact in all extremities. 11:11 Neuro: Orientation: is normal, Motor: is normal, moves all fours, Sensation: is normal, no obvious gross deficits. Vital Signs: 10:31 BP 112 / 76; Pulse 85; Resp 16; Temp 97.4; Pulse Ox 100% on R/A; Weight 68.04 kg; iw Height 5 ft. 9 in. (175.26 cm); Pain 6/10; 11:31 BP 113 / 82; Pulse 79; Resp 16 S; Pulse Ox 100% on R/A; ca1 12:30 BP 121 / 86; Pulse 82; Resp 16 S; Pulse Ox 100% ; ca1 13:30 BP 111 / 74; Pulse 86; Resp 15 S; Pulse Ox 100% on R/A; ca1 14:46 BP 116 / 81; Pulse 79; Resp 14 S; Pulse Ox 100% on R/A; ca1 10:31 Body Mass Index 22.15 (68.04 kg, 175.26 cm) iw MDM: 10:38 Patient medically screened. pm1 13:56 Data reviewed: vital signs. Data interpreted: Pulse oximetry: on room air is 100 %. pm1 Interpretation: normal. Counseling: I had a detailed discussion with the patient and/or guardian regarding: the historical points, exam findings, and any diagnostic results supporting the discharge/admit diagnosis, lab results, the need for outpatient follow up, to return to the emergency department if symptoms worsen or persist or if there are any questions or concerns that arise at home. 01/14 11:11 Order name: CBC with Diff; Complete Time: 12:04 pm1 12 11:11 Order name: CMP; Complete Time: 12:12 pm1 12 11:57 Order name: Glucose, Ancillary Testing; Complete Time: 12:04 EDMS 01/14 11:11 Order name: IV Saline Lock; Complete Time: 11:51 pm1 Administered Medications: 13:31 Drug: Valium 2 mg Route: PO; ca1 15:19 Follow up: Response: No adverse reaction; Pain is decreased ca1 13:32 Drug: TORadol - Ketorolac 15 mg Route: IVP; Site: right antecubital; ca1 15:19 Follow up: Response: No adverse reaction; Pain is decreased ca1 Disposition: 01/15 07:17 Co-signature as Attending Physician, Britton Shah MD I agree with the assessment and kdr plan of care. Disposition: 01/14/19 13:57 Discharged to Home. Impression: Muscle spasm of back. - Condition is Stable. - Discharge Instructions: Back Pain, Adult, Muscle Cramps and Spasms. - Prescriptions for Valium 2 mg Oral Tablet - take 1 tablet by ORAL route every 8 hours As needed; 10 tablet. - Work release form, Medication Reconciliation Form, Thank You Letter, Antibiotic Education, Prescription Opioid Use form. - Follow up: Emergency Department; When: As needed; Reason: Worsening of condition. Follow up: Private Physician; When: 2 - 3 days; Reason: Recheck today's complaints, Continuance of care, Re-evaluation by your physician. - Problem is new. - Symptoms have improved. Signatures: Dispatcher [employer] EDMS Britton Shah MD MD [facility] Ann Figueroa RN RN iw Adeel Lopez NP DISTRICT MANAGER PRIMARY CARE SALES pm1 Areli Martin RN RN ca1 Corrections: (The following items were deleted from the chart) 01/14 15:21 13:57 01/14/2019 13:57 Discharged to Home. Impression: Muscle spasm of back. Condition ca1 is Stable. Forms are Medication Reconciliation Form, Thank You Letter, Antibiotic Education, Prescription Opioid Use. Follow up: Emergency Department; When: As needed; Reason: Worsening of condition. Follow up: Private Physician; When: 2 - 3 days; Reason: Recheck today's complaints, Continuance of care, Re-evaluation by your physician. Problem is new. Symptoms have improved. pm1
[2019-01-14 18:25] VITALS: TEMP 97.4; O2SAT 100
[2019-01-14 18:30] VITALS: BP 116/81
== END 2019-01-14 15:21 | disposition home or self-care (01) ==
LOC: ER 10:11
DX: M62.830 Muscle spasm of back (principal); F17.210 Nicotine dependence, cigarettes, uncomplicated
CPT/HCPCS: 36415; 80053; 82947; 85025; 96374; 99284

== ENCOUNTER 2019-02-02 22:16 | Emergency (ER) | payer BC ==
--- OUTSIDE RECORDS SUMMARY | 2019-02-02 22:18 | XMS REPORT ---
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
--- OUTSIDE RECORDS SUMMARY | 2019-02-02 22:18 | XMS REPORT ---
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
--- OUTSIDE RECORDS SUMMARY | 2019-02-02 22:18 | XMS REPORT ---
:1995 [facility] Address [address] [place] [address] Dr. Ceja [address] [place] [id number] Care Team Providers Name Role Phone Unavailable Unavailable Unavailable Problems This patient has no known problems. Allergies, Adverse Reactions, Alerts This patient has no known allergies or adverse reactions. Medications This patient has no known medications.
--- OUTSIDE RECORDS SUMMARY | 2019-02-02 22:18 | XMS REPORT ---
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
--- OUTSIDE RECORDS SUMMARY | 2019-02-02 22:18 | XMS REPORT ---
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 48633978430 2 MG orally Active 1 tablet every [address] [facility] 47036017110 100 UNIT/ML pump Active as directed twice a day Zanaflex [facility] 65343028886 4 MG Orally Active 1 tablet as every 8hrs needed Meloxicam [facility] 21345677753 15 MG Orally Active 1 tablet Once a day Gabapentin [facility] 63928378368 300 MG Orally Jan 16, Active 1 capsule Twice a day 2018 Results No Known Results Summary Purpose eClinicalWorks Submission
--- OUTSIDE RECORDS SUMMARY | 2019-02-02 22:19 | XMS REPORT ---
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 [address] 125 MCG (5000 Jan 19April Active as UT) Orally 2018 12, directed Every day 2019 Savella Titration ND 74492845222 12.5 & 25 & 50 Jan 27, Feb 26, Active as Pack MG Orally Take 2018 2019 directed as directed daily Zanaflex ND 04711857037 4 MG Orally Active 1 tablet every 8hrs as needed Valium ND 13923681040 2 MG orally Active 1 tablet every 8 hrs Humalog ND 07211452367 100 UNIT/ML Active as pump twice a directed day Meloxicam ND 94919707471 15 MG Orally Active 1 tablet Once a day Diclofenac ND 20764845449 35 MG Orally Jan 23, Feb 02, Active 1 capsule Three times a 2019 2019 as needed day with food as needed Gabapentin ND 81758581341 300 MG Orally Jan 16, Active 1 capsule Twice a day 2019 Results No Known Results Summary Purpose eClinicalWorks Submission
--- OUTSIDE RECORDS SUMMARY | 2019-02-02 22:19 | XMS REPORT ---
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
--- OUTSIDE RECORDS SUMMARY | 2019-02-02 22:19 | XMS REPORT ---
[...] manager (current) use of insulin Z79.4 Active Assessment Muscle pain, fibromyalgia M79.7 Active Medications Medication Code Code Instructions Start End Date Status Dosage System Date Humalog [facility] 2001 57670454126 100 UNIT/ML Active as pump twice a directed day Meloxicam ND 39771760577 15 MG Orally Active 1 tablet Once a day Gabapentin ND 38273632354 300 MG Orally Jan 16, Active 1 capsule Twice a day 2018 Diclofenac ND 06794447087 35 MG Orally Jan 23, Feb 02, Active 1 capsule Three times a 2019 2019 as needed day with food as needed Cholecalciferol [facility] 2001 [address] 125 MCG (5000 Jan 19April Active as UT) Orally 2018 directed Every day Zanaflex [facility] 29138009012 4 MG Orally Active 1 tablet every 8hrs as needed Valium ND 32442837868 2 MG orally Active 1 tablet every 8 hrs Results No Known Results Summary Purpose eClinicalWorks Submission
--- OUTSIDE RECORDS SUMMARY | 2019-02-02 22:19 | XMS REPORT ---
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
[2019-02-02 23:25] LABS: Arterial Blood Carboxyhemoglob 1.3 % (0-1.5); Blood O2 Saturation 97.3 % (92-98.5)
[2019-02-02] MEDS ORDERED: PROMETHAZINE 25 MG/ML VIAL ONE (23:28)
[2019-02-02] MEDS ORDERED: NA CHLORIDE 0.9% 2,000 ML ONE (23:29)
[2019-02-02] MEDS ORDERED: FENTANYL CITR 100 MCG/2 ML ONE (23:29)
[2019-02-02 23:36] LABS: Protime INR 1.02
[2019-02-02 23:42] LABS: Absolute Lymphocytes (CBC) 0.8 K/uL (0.7-4.9); Basophils % 0.1 % (0-1.3); Hematocrit 51.5 % (39.6-49.0); RBC Red Blood Cell Count 5.49 M/uL (4.33-5.43)
[2019-02-03 00:03] LABS: ALT/SGPT 33 U/L (12-78); AST/SGOT 32 U/L (15-37); Albumin 4.1 g/dL (3.4-5.0); Alkaline Phosphatase 99 U/L (45-117); BUN Blood Urea Nitrogen 12 mg/dL (7-18); Bicarbonate 17 mmol/L (21-32); Bilirubin Direct < 0.1 mg/dL (0-0.2); Bilirubin Total 0.4 mg/dL (0.2-1.0); CKMB Creatine Kinase MB < 1.0 ng/mL (0.3-3.6); Creatine Phosphokinase 137 U/L (39-308); Glucose Level 236 mg/dL (74-106); Lipase 33 U/L (73-393); Potassium 4.8 mmol/L (3.5-5.1); Protein, Total 8.9 g/dL (6.4-8.2); Sodium Level 129 mmol/L (136-145); Troponin (Emerg Dept Use Only) < 0.02 ng/mL (0.0-0.045)
[2019-02-03] MEDS ORDERED: OSELTAMIVIR 75 MG CAP ONE (00:31)
--- NOTE | 2019-02-03 01:38 | ER ---
Nurse's Notes [facility] Name: Greyson Correia Age: 23 yrs Sex: Male : 1995 Arrival Date: 02/02/2019 Time: 22:17 Bed 20 Private MD: Diagnosis: Diabetes mellitus due to underlying condition;Dehydration;Influenza due to identified novel influenza A virus Presentation: 02/02 22:31 Presenting complaint: Patient states: Blood sugars have been elevated x 2 weeks, states lp1 vomiting for the last 4-5 hours today; Ongoing diagnosis of fibromyalgia, states pain to general body/skin when anything touches it; Actively vomiting bile during triage. Transition of care: patient was not received from another setting of care. Onset of symptoms was February 02, 2019. Risk Assessment: Do you want to hurt yourself or someone else? Patient reports no desire to harm self or others. Initial Sepsis Screen: Does the patient meet any 2 criteria? No. Patient's initial sepsis screen is negative. Does the patient have a suspected source of infection? No. Patient's initial sepsis screen is negative. Care prior to arrival: None. 22:31 Method Of Arrival: Ambulatory lp1 22:31 Acuity: ROGELIO 2 lp1 Historical: - Allergies: 22:34 No Known Allergies; lp1 - Home Meds: 22:34 humalog - pump [Active]; diclofenac sodium 50 mg oral TbEC 1 tab 3 times per day lp1 [Active]; gabapentin 300 mg oral cap 1 cap twice a day [Active]; Savella 25 mg oral tab twice a day [Active]; - PMHx: 22:34 Diabetes - IDDM; Bryn's; lp1 - PSHx: 22:34 None; lp1 - Immunization history:: Adult Immunizations up to date. - Social history:: Smoking status: Patient uses tobacco products, denies chronic smoking, but will smoke occasionally. - Ebola Screening: : No symptoms or risks identified at this time. Screenin:34 Abuse screen: Denies threats or abuse. Denies injuries from another. Nutritional lp1 screening: No deficits noted. Tuberculosis screening: No symptoms or risk factors identified. Fall Risk None identified. Assessment: 22:50 General: Appears in no apparent distress. Behavior is calm, cooperative, appropriate wh for age. Pain: Complains of pain in generalized pain all over Pain does not radiate. Pain currently is 8 out of 10 on a pain scale. Quality of pain is described as shooting. Neuro: Level of Consciousness is awake, alert, obeys commands, Oriented to person, place, time, situation, Appropriate for age. Cardiovascular: Heart tones S1 S2 Rhythm is sinus tachycardia. Respiratory: Airway is patent Respiratory effort is even, unlabored, Respiratory pattern is regular, symmetrical, Breath sounds are clear bilaterally. GI: Abdomen is flat, non-distended, Bowel sounds present X 4 quads. Abd is soft and non tender X 4 quads. Reports nausea, vomiting. : No signs and/or symptoms were reported regarding the genitourinary system. EENT: No signs and/or symptoms were reported regarding the EENT system. Derm: Skin is intact, is healthy with good turgor, Skin is pink, warm \T\ dry. normal. Musculoskeletal: Circulation, motion, and sensation intact. 02/03 00:03 Reassessment: Patient appears in no apparent distress at this time. No changes from previously documented assessment. Patient and/or family updated on plan of care and expected duration. Pain level reassessed. Patient is alert, oriented x 3, equal unlabored respirations, skin warm/dry/pink. 01:34 Reassessment: Patient appears in no apparent distress at this time. No changes from previously documented assessment. Patient and/or family updated on plan of care and expected duration. Pain level reassessed. Patient is alert, oriented x 3, equal unlabored respirations, skin warm/dry/pink. Patient states feeling better. Patient states symptoms have improved. Vital Signs: 02/02 22:34 BP 160 / 101; Pulse 138; Resp 20; Temp 99(O); Pulse Ox 97% on R/A; Weight 68.04 kg; lp1 Height 5 ft. 9 in. (175.26 cm); Pain /10; 02/03 00:00 BP 145 / 97; Pulse 105; Resp 18; Pulse Ox 100% ; wh 01:35 BP 137 / 76; Pulse 108; Resp 18; Pulse Ox 99% on R/A; wh 02/02 22:34 Body Mass Index 22.15 (68.04 kg, 175.26 cm) lp1 ED Course: 02/02 22:17 Patient arrived in ED. cl3 22:32 Triage completed. lp1 22:32 Arm band placed on. lp1 22:34 Norma Wiggins FNP-C [facility]. snw 22:34 Nicolas Arrington MD is Attending Physician. snw 22:50 Patient has correct armband on for positive identification. Placed in gown. Bed in low position. Call light in reach. Side rails up X 1. drawer upfitter on. Pulse ox on. NIBP on. 22:55 Marcia Zarate is Primary Nurse. 23:10 Inserted saline lock: 20 gauge in right antecubital area, using aseptic technique. Blood collected. 02/03 00:55 Chest Single View XRAY In Process Unspecified. EDMS 01:46 No provider procedures requiring assistance completed. IV discontinued, intact, bleeding controlled, No redness/swelling at site. Administered Medications: 02/02 23:36 Drug: NS 0.9% (30 ml/kg) 30 ml/kg Route: IV; Rate: bolus; Site: right antecubital; 02/03 01:35 Follow up: Response: No adverse reaction; IV Status: Completed infusion 02/02 23:36 Drug: fentaNYL (PF) 50 mcg Route: IVP; Site: right antecubital; 02/03 00:31 Follow up: Response: No adverse reaction; Pain is decreased; RASS: Alert and Calm (0) 02/02 23:36 Drug: Phenergan 6.25 mg Route: IVP; Site: right antecubital; 02/03 00:31 Follow up: Response: No adverse reaction; Nausea is decreased 00:31 Drug: Tamiflu 75 mg Route: PO; 01:12 Follow up: Response: No adverse reaction 01:44 Drug: fentaNYL (PF) 25 mcg Route: IVP; Site: right antecubital; 01:46 Follow up: Response: No adverse reaction; Pain is decreased; RASS: Alert and Calm (0) Outcome: 01:34 Discharge ordered by . snw 01:47 Discharged to home ambulatory, with family. 01:47 Condition: stable 01:47 Discharge instructions given to patient, family, Instructed on discharge instructions, follow up and referral plans. medication usage, POC FLu Demonstrated understanding of instructions, follow-up care, medications, POC Prescriptions given X 2. 01:51 Patient left the ED. Signatures: Dispatcher [employer] EDMS Norma Wiggins, LABORATORY EQUIPMENT INSTALLER-C LABORATORY EQUIPMENT INSTALLER-Csnw Maria Hoffman, RN RN lp1 Marcia Zarate Charde cl3
--- NOTE | 2019-02-03 01:39 | EDPHYS ---
Physician Documentation [facility] Name: Greyson Correia Age: 23 yrs Sex: Male : 1995 Arrival Date: 02/02/2019 Time: 22:17 Bed 20 Private MD: ALEKSANDRA Physician Nicolas Arrington HPI: 02/02 23:10 This 23 yrs old Male presents to ER via Ambulatory with complaints of snw Abdominal Pain, Nausea/Vomiting. 23:10 The patient presents with abdominal pain that is diffuse. Onset: The symptoms/episode snw began/occurred gradually. The symptoms do not radiate. Associated signs and symptoms: Pertinent positives: nausea, vomiting. The symptoms are described as crampy. Severity of pain: At its worst the pain was moderate. It is unknown whether or not the patient has had similar symptoms in the past. The patient has been recently seen by a physician: Manfred today, given Magnesium, phenergan, "migraine medicine". Pt recently had steroids for "fibromyalgia". FSBS running high x 2 weeks. Historical: - Allergies: 22:34 No Known Allergies; lp1 - Home Meds: 22:34 humalog - pump [Active]; diclofenac sodium 50 mg oral TbEC 1 tab 3 times per day lp1 [Active]; gabapentin 300 mg oral cap 1 cap twice a day [Active]; Savella 25 mg oral tab twice a day [Active]; - PMHx: 22:34 Diabetes - IDDM; Bryn's; lp1 - PSHx: 22:34 None; lp1 - Immunization history:: Adult Immunizations up to date. - Social history:: Smoking status: Patient uses tobacco products, denies chronic smoking, but will smoke occasionally. - Ebola Screening: : No symptoms or risks identified at this time. ROS: 23:08 Eyes: Negative for injury, pain, redness, and discharge, ENT: Negative for injury, snw pain, and discharge, Neck: Negative for injury, pain, and swelling, Cardiovascular: Negative for chest pain, palpitations, and edema, Respiratory: Negative for shortness of breath, cough, wheezing, and pleuritic chest pain. 23:08 Back: Negative for injury and pain, : Negative for injury, bleeding, discharge, and swelling, MS/Extremity: Negative for injury and deformity, Skin: Negative for injury, rash, and discoloration, Neuro: Negative for headache, weakness, numbness, tingling, and seizure. 23:08 Constitutional: Positive for body aches, fatigue, malaise, poor PO intake. 23:08 Abdomen/GI: Positive for abdominal pain, nausea and vomiting. Exam: 23:07 Head/Face: Normocephalic, atraumatic. Eyes: Pupils equal round and reactive to light, snw extra-ocular motions intact. Lids and lashes normal. Conjunctiva and sclera are non-icteric and not injected. Cornea within normal limits. Periorbital areas with no swelling, redness, or edema. 23:07 Neck: Trachea midline, no thyromegaly or masses palpated, and no cervical lymphadenopathy. Supple, full range of motion without nuchal rigidity, or vertebral point tenderness. No Meningismus. Chest/axilla: Normal chest wall appearance and motion. Nontender with no deformity. No lesions are appreciated. 23:07 Respiratory: Lungs have equal breath sounds bilaterally, clear to auscultation and percussion. No rales, rhonchi or wheezes noted. No increased work of breathing, no retractions or nasal flaring. 23:07 Back: No spinal tenderness. No costovertebral tenderness. Full range of motion. 23:07 Neuro: Awake and alert, GCS 15, oriented to person, place, time, and situation. Cranial nerves II-XII grossly intact. Motor strength 5/5 in all extremities. Sensory grossly intact. Cerebellar exam normal. Normal gait. Psych: Awake, alert, with orientation to person, place and time. Behavior, mood, and affect are within normal limits. 23:07 Constitutional: The patient appears alert, awake, anxious, frail, pale, uncomfortable. 23:07 ENT: TM's: are normal, Nose: is normal, Mouth: Oral mucosa: dry, Posterior pharynx: erythema, that is moderate, Voice: is normal. 23:07 Cardiovascular: Rate: tachycardic, Rhythm: regular. 23:07 Abdomen/GI: Inspection: abdomen appears normal, Bowel sounds: normal, Palpation: mild abdominal tenderness, in all quadrants. 23:07 Skin: Appearance: normal except for affected area, Color: pale, Temperature: warm, Moisture: dry. Vital Signs: 22:34 BP 160 / 101; Pulse 138; Resp 20; Temp 99(O); Pulse Ox 97% on R/A; Weight 68.04 kg; lp1 Height 5 ft. 9 in. (175.26 cm); Pain 10/18; 02/03 00:00 BP 145 / 97; Pulse 105; Resp 18; Pulse Ox 100% ; wh 01:35 BP 137 / 76; Pulse 108; Resp 18; Pulse Ox 99% on R/A; wh 02/02 22:34 Body Mass Index 22.15 (68.04 kg, 175.26 cm) lp1 MDM: 02/02 22:36 Patient medically screened. ayaka 02/03 01:34 Data reviewed: vital signs, nurses notes. Data interpreted: Pulse oximetry: on room air snw is 100 %. Interpretation: normal. Counseling: I had a detailed discussion with the patient and/or guardian regarding: the historical points, exam findings, and any diagnostic results supporting the discharge/admit diagnosis, the presence of at least one elevated blood pressure reading (>120/80) during this emergency department visit, lab results, the need for outpatient follow up, for definitive care, to return to the emergency department if symptoms worsen or persist or if there are any questions or concerns that arise at home. Response to treatment: the patient's symptoms have markedly improved after treatment. Special discussion: I have referred the patient to see his PCP for further evaluation of high blood pressure. Based on the history and exam findings, there is no indication for further emergent testing or inpatient evaluation. I discussed with the patient/guardian the need to see the primary care provider for further evaluation of the symptoms. 02/02 22:52 Order name: ABG pending sale to [facility] 02/02 22:52 Order name: Basic Metabolic Panel; Complete Time: 00:06 w 02/02 22:52 Order name: Blood Culture Adult (2) pending sale to [facility] 02/02 22:52 Order name: CBC with Diff; Complete Time: 00:03 snw 02/02 22:52 Order name: Ckmb; Complete Time: 00:06 snw 02/02 22:52 Order name: CPK; Complete Time: 00:06 snw 02/02 22:52 Order name: Lactate; Complete Time: 00:06 snw 02/02 22:52 Order name: LFT's; Complete Time: 00:06 snw 02/02 22:52 Order name: Lipase; Complete Time: 00:06 snw 02/02 22:52 Order name: Procalcitonin; Complete Time: 00:16 snw 02/02 22:52 Order name: Protime (+inr); Complete Time: 23:44 snw 02/02 22:52 Order name: Ptt, Activated; Complete Time: 23:44 snw 02/02 22:52 Order name: Troponin (emerg Dept Use Only); Complete Time: 00:06 snw 02/02 22:52 Order name: Chest Single View XRAY snw 02/02 22:52 Order name: Accucheck; Complete Time: 23:36 snw 02/02 22:52 Order name: Cardiac monitoring; Complete Time: 23:36 snw 02/02 22:52 Order name: EKG - Nurse/Tech; Complete Time: 23:35 snw 02/02 22:52 Order name: IV Saline Lock - Large Bore; Complete Time: 23:35 snw 02/02 22:53 Order name: Flu; Complete Time: 00:16 snw 02/02 22:53 Order name: Strep; Complete Time: 23:44 snw 02/02 23:04 Order name: TSH; Complete Time: 00:16 snw 02/02 23:27 Order name: Glucose, Ancillary Testing; Complete Time: 23:29 EDMS 02/02 23:42 Order name: Throat Culture EDOR 02/03 01:23 Order name: Glucose, Ancillary Testing; Complete Time: 01:29 EDMS 02/02 22:52 Order name: Labs collected and sent; Complete Time: 23:35 snw 02/02 22:52 Order name: O2 Per Protocol; Complete Time: 23:35 snw 02/02 22:52 Order name: O2 Sat Monitoring; Complete Time: 23:35 snw 02/03 00:37 Order name: FSBS; Complete Time: 01:12 snw Administered Medications: 02/02 23:36 Drug: NS 0.9% (30 ml/kg) 30 ml/kg Route: IV; Rate: bolus; Site: right antecubital; 02/03 01:35 Follow up: Response: No adverse reaction; IV Status: Completed infusion 02/02 23:36 Drug: fentaNYL (PF) 50 mcg Route: IVP; Site: right antecubital; 02/03 00:31 Follow up: Response: No adverse reaction; Pain is decreased; RASS: Alert and Calm (0) 02/02 23:36 Drug: Phenergan 6.25 mg Route: IVP; Site: right antecubital; 02/03 00:31 Follow up: Response: No adverse reaction; Nausea is decreased 00:31 Drug: Tamiflu 75 mg Route: PO; 01:12 Follow up: Response: No adverse reaction 01:44 Drug: fentaNYL (PF) 25 mcg Route: IVP; Site: right antecubital; 01:46 Follow up: Response: No adverse reaction; Pain is decreased; RASS: Alert and Calm (0) Disposition: 05:40 Co-signature as Attending Physician, Nicolas Arrington MD I agree with the assessment and ayaka plan of care. Disposition: 02/03/19 01:34 Discharged to Home. Impression: Diabetes mellitus due to underlying condition, Dehydration, Influenza due to identified novel influenza A virus. - Condition is Stable. - Discharge Instructions: Dehydration, Adult, Diabetes and Sick Day Management, Fever, Adult, Influenza, Adult, Rehydration, Adult. - Prescriptions for promethazine 25 mg Oral Tablet - take 1 tablet by ORAL route every 6 hours As needed; 20 tablet. Tamiflu 75 mg Oral Capsule - take 1 tablet by ORAL route every 12 hours for 5 days; 10 tablet. - Work release form, Medication Reconciliation Form, Thank You Letter, Antibiotic Education, Prescription Opioid Use form. - Follow up: Emergency Department; When: As needed; Reason: Worsening of condition. Follow up: Private Physician; When: 1 - 2 days; Reason: Recheck today's complaints, Continuance of care, Re-evaluation by your physician. Signatures: Dispatcher [employer] Nicolas Rainey MD MD cha Therrien, Shelly, PUBLICATION EDITOR-C PUBLICATION EDITOR-Csnw Maria Hoffman RN RN lp1 Marcia Zarate Corrections: (The following items were deleted from the chart) 01:51 01:34 02/03/2019 01:34 Discharged to Home. Impression: Diabetes mellitus due to underlying condition; Dehydration; Influenza due to identified novel influenza A virus. Condition is Stable. Discharge Instructions: Dehydration, Adult, Diabetes and Sick Day Management, Fever, Adult, Influenza, Adult, Rehydration, Adult. Prescriptions for promethazine 25 mg Oral Tablet - take 1 tablet by ORAL route every 6 hours As needed; 20 tablet, Tamiflu 75 mg Oral Capsule - take 1 tablet by ORAL route every 12 hours for 5 days; 10 tablet. and Forms are Work release form, Medication Reconciliation Form, Thank You Letter, Antibiotic Education, Prescription Opioid Use. Follow up: Emergency Department; When: As needed; Reason: Worsening of condition. Follow up: Private Physician; When: 1 - 2 days; Reason: Recheck today's complaints, Continuance of care, Re-evaluation by your physician. snw
[2019-02-03] MEDS ORDERED: FENTANYL CITR 100 MCG/2 ML ONE (01:42)
[2019-02-03 02:10] VITALS: TEMP 99
[2019-02-03 02:13] VITALS: BP 137/76; O2SAT 99
--- NOTE | 2019-02-03 08:20 | RAD REPORT ---
EXAM DESCRIPTION: RAD - Chest Single View - 02/03/2019 12:54 am CLINICAL HISTORY: Hyperglycemia, fever, vomiting COMPARISON: None. TECHNIQUE: AP portable chest image was obtained 2356 hours . FINDINGS: Lungs are clear. Heart and vasculature are normal. No measurable pleural effusion and no p neumothorax. No acute bone findings seen. Curvature of the upper thoracic spine may be a positioning artifact. Dedicated imaging could be performed if there is need to further evaluate any possible scol iosis. No rib abnormality seen. No fused or anomalous vertebrae suspected. No acute aortic findings s uspected. IMPRESSION: No acute cardiopulmonary process.
--- NOTE | 2019-02-03 13:47 | EKG ---
Test Date: 2019-02-02 Test Time: 23:11:17 Check Embosser: RASHARD MEASUREMENT RESULTS: Intervals: Rate: 125 NJ: 122 QRSD: 76 QT: 292 QTc: 421 Wilson: P: 63 NJ: 122 QRS: 16 T: 44 INTERPRETIVE STATEMENTS: Sinus tachycardia Possible Left atrial enlargement Borderline ECG No previous ECG available for comparison Electronically Signed On 02-03-19 13:46:24 911 EMERGENCY SERVICES DISPATCHER by Kevin Whitfield
== END 2019-02-03 01:51 | disposition home or self-care (01) ==
LOC: ER 22:16
DX: E86.0 Dehydration (principal); J10.1 Influenza due to other identified influenza virus with other respiratory manifestations; E08.9 Diabetes mellitus due to underlying condition without complications; Z79.4 Long term (current) use of insulin; Z96.41 Presence of insulin pump (external) (internal)
CPT/HCPCS: 96365; 93005; 87040 ×2; 87070; 85025; 80048; 36415; 82550; 85610; 82947 ×2; 80076; 87081; 83605; 85730; 84443; 84484; 82553; 83690; 84145; 87804 ×2; 71045; 82805; 96375; 99284; 96366; J2550; J3010 ×2; J7030

== ENCOUNTER 2019-02-04 11:26 | Inpatient (IN) | payer BC ==
--- OUTSIDE RECORDS SUMMARY | 2019-02-04 11:29 | XMS REPORT ---
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
--- OUTSIDE RECORDS SUMMARY | 2019-02-04 11:29 | XMS REPORT ---
:1995 [facility] Address [address] [place] [address] Dr. Ceja [address] [place] [id number] Care Team Providers Name Role Phone Unavailable Unavailable Unavailable Problems This patient has no known problems. Allergies, Adverse Reactions, Alerts This patient has no known allergies or adverse reactions. Medications This patient has no known medications.
--- OUTSIDE RECORDS SUMMARY | 2019-02-04 11:29 | XMS REPORT ---
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 Problem terminal gauger (current) use of insulin Z79.4 Active Assessment Muscle pain, fibromyalgia M79.7 Active Medications Medication Code Code Instructions Start End Date Status Dosage System Date Humalog [facility] 10759928046 100 UNIT/ML Active as pump twice a directed day Meloxicam ND 85174571511 15 MG Orally Active 1 tablet Once a day Gabapentin ND 68752962642 300 MG Orally Jan 16, Active 1 capsule Twice a day 2018 Diclofenac ND 70201377014 35 MG Orally Jan 23, Feb 02, Active 1 capsule Three times a 2019 2019 as needed day with food as needed Cholecalciferol [facility] [address] 125 MCG (5000 Jan 19April Active as UT) Orally 2018 directed Every day Zanaflex [facility] 63668170487 4 MG Orally Active 1 tablet every 8hrs as needed Valium ND 20716445140 2 MG orally Active 1 tablet every 8 hrs Results No Known Results Summary Purpose eClinicalWorks Submission
--- OUTSIDE RECORDS SUMMARY | 2019-02-04 11:29 | XMS REPORT ---
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 Assessment Muscle pain, fibromyalgia M79.7 Active Medications Medication Code Code Instructions Start End Date Status Dosage System Date Valium [facility] 07806604081 2 MG orally Active 1 tablet every 8 hrs Humalog [facility] 08001433552 100 UNIT/ML pump Active as directed twice a day Zanaflex [facility] 53262553732 4 MG Orally Active 1 tablet as every 8hrs needed Meloxicam [facility] 17149893449 15 MG Orally Active 1 tablet Once a day Gabapentin [facility] 66619293235 300 MG Orally Jan 16, Active 1 capsule Twice a day 2018 Results No Known Results Summary Purpose eClinicalWorks Submission
--- OUTSIDE RECORDS SUMMARY | 2019-02-04 11:29 | XMS REPORT ---
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
--- OUTSIDE RECORDS SUMMARY | 2019-02-04 11:29 | XMS REPORT ---
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
--- OUTSIDE RECORDS SUMMARY | 2019-02-04 11:29 | XMS REPORT ---
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
--- OUTSIDE RECORDS SUMMARY | 2019-02-04 11:29 | XMS REPORT ---
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
--- OUTSIDE RECORDS SUMMARY | 2019-02-04 11:30 | XMS REPORT ---
[...] type 1 E10.9 Active diabetes mellitus Problem outsole flexer (current) use of insulin Z79.4 Active Medications Medication Code Code Instructions Start End Status Dosage System Date Date Cholecalciferol [facility] [address] 125 MCG (5000 Jan 19April Active as UT) Orally 2018 12, directed Every day 2019 Savella Titration ND 05260879375 12.5 & 25 & 50 Jan 27, Feb 26, Active as Pack MG Orally Take 2018 2019 directed as directed daily Zanaflex ND 35488187870 4 MG Orally Active 1 tablet every 8hrs as needed Valium ND 89864663283 2 MG orally Active 1 tablet every 8 hrs Humalog ND 92575932683 100 UNIT/ML Active as pump twice a directed day Meloxicam ND 26045531918 15 MG Orally Active 1 tablet Once a day Diclofenac ND 75957151149 35 MG Orally Jan 23, Feb 02, Active 1 capsule Three times a 2019 2019 as needed day with food as needed Gabapentin ND 17615446655 300 MG Orally Jan 16, Active 1 capsule Twice a day 2019 Results No Known Results Summary Purpose eClinicalWorks Submission
--- OUTSIDE RECORDS SUMMARY | 2019-02-04 11:30 | XMS REPORT ---
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 Problem intermediate designer (current) use of insulin Z79.4 Active Medications Medication Code Code Instructions Start End Status Dosage System Date Date Cholecalciferol [facility] [address] 125 MCG (5000 Jan 19April Active as UT) Orally 2018 12, directed Every day 2019 Zanaflex [facility] 25582238371 4 MG Orally Active 1 tablet every 8hrs as needed Humalog [facility] 81589651406 100 UNIT/ML Active as pump twice a directed day Meloxicam ND 78462575283 15 MG Orally Active 1 tablet Once a day Medrol ND 42695258845 4 MG Orally as Feb 03Feb 10, Active as directed 2018 2019 directed Gabapentin [facility] 80049228054 300 MG Orally Jan 16, Active 1 capsule Twice a day 2018 Valium ND 08052271167 2 MG orally Active 1 tablet every 8 hrs Savella Titration ND 31456866608 12.5 & 25 & 50 Jan 27Feb 26, Active as Pack MG Orally Take 2018 2019 directed as directed daily Results No Known Results Summary Purpose eClinicalWorks Submission
--- OUTSIDE RECORDS SUMMARY | 2019-02-04 11:30 | XMS REPORT ---
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
[2019-02-04] MEDS ORDERED: ONDANSETRON 4 MG/2 ML VIAL ONE ×2 (11:54→13:12)
[2019-02-04] MEDS ORDERED: NA CHLORIDE 0.9% 2,000 ML ONE ×2 (11:54→13:25)
[2019-02-04] MEDS ORDERED: ACETAMINOPHEN 325 MG TABLET ONE (11:54)
[2019-02-04] MEDS ORDERED: CEFTRIAXONE/SWI 1gm 1 GM/10 ML SYR ONE ×2 (11:55→12:56)
[2019-02-04 12:22] LABS: Absolute Lymphocytes (CBC) 0.5 K/uL (0.7-4.9); Hematocrit 45.5 % (39.6-49.0); Lymphocytes % 5.2 % (15.3-44.8); MPV 7.5 fL (7.6-11.3); RBC Red Blood Cell Count 4.92 M/uL (4.33-5.43)
--- NOTE | 2019-02-04 12:23 | RAD REPORT ---
EXAM DESCRIPTION: RAD - Chest Single View - 02/04/2019 12:11 pm CLINICAL HISTORY: Body aches, vomiting, flu-like symptoms COMPARISON: February 02 TECHNIQUE: AP portable chest image was obtained 1206 hours . FINDINGS: Lung volumes are normal. There is no dense consolidation. However, patchy alveolar opaciti es are present in the lower left lung field. This is new from prior imaging. Heart and vasculature are normal. No measurable pleural effusion and no pneumothorax. No acute bony abnormality seen. No acute aortic findings suspected. IMPRESSION: Patchy pneumonia in the left lower lung field new from February 02
[2019-02-04 12:36] LABS: ALT/SGPT 23 U/L (12-78); AST/SGOT 16 U/L (15-37); Albumin 3.5 g/dL (3.4-5.0); Alkaline Phosphatase 88 U/L (45-117); BUN Blood Urea Nitrogen 12 mg/dL (7-18); Bicarbonate 16 mmol/L (21-32); Bilirubin Direct 0.2 mg/dL (0-0.2); Bilirubin Total 0.5 mg/dL (0.2-1.0); Glucose Level 222 mg/dL (74-106); Magnesium 1.9 mg/dL (1.8-2.4); Potassium 3.7 mmol/L (3.5-5.1); Protein, Total 8.7 g/dL (6.4-8.2); Sodium Level 130 mmol/L (136-145); Troponin (Emerg Dept Use Only) < 0.02 ng/mL (0.0-0.045)
--- NOTE | 2019-02-04 12:41 | ER ---
Nurse's Notes [facility] Name: Greyson Correia Age: 23 yrs Sex: Male : 1995 Arrival Date: 02/04/2019 Time: 11:27 Bed 6 Private MD: Diagnosis: Type 1 diabetes mellitus with ketoacidosis without coma;Fever, unspecified;Pneumonia due to other specified bacteria;Influenza due to certain identified influenza viruses;Weakness Presentation: 02/04 11:36 Presenting complaint: Patient states: generalized body aches, vomiting, diagnosed with sr5 flu yesterday. Reports being unable to keep nausea meds down. PMH=insulin pump, fibromyalgia, Bryn. Transition of care: patient was not received from another setting of care. Initial Sepsis Screen: Does the patient meet any 2 criteria? HR > 90 bpm. Does the patient have a suspected source of infection?. 11:36 Acuity: ROGELIO 2 sr5 11:36 Method Of Arrival: Ambulatory sr5 11:39 Initial Sepsis Screen: Does the patient meet any 2 criteria?. sr5 12:26 Onset of symptoms was February 02, 2019. Risk Assessment: Do you want to hurt yourself sv or someone else? Patient reports no desire to harm self or others. Care prior to arrival: None. Triage Assessment: 11:39 General: Appears ill, Behavior is cooperative. Pain: Complains of pain in back Pain sr5 currently is 8 out of 10 on a pain scale. Neuro: Level of Consciousness is awake, alert, obeys commands, Oriented to person, place, time, situation. Cardiovascular: Patient's skin is warm and dry. GI: Reports nausea, vomiting. Historical: - Allergies: 11:45 No Known Allergies; sv - PMHx: 11:39 Diabetes - IDDM; Bryn's; Fibromyalgia; insulin pump; sr5 - PSHx: 11:39 None; sr5 - Immunization history:: Flu vaccine is not up to date. - Social history:: Smoking status: Patient/guardian denies using tobacco, the patient reports quitting approximately 1 years ago. - Ebola Screening: : Patient negative for fever greater than or equal to 101.5 degrees Fahrenheit, and additional compatible Ebola Virus Disease symptoms. - Family history:: not pertinent. Screenin:45 Abuse screen: Denies threats or abuse. Denies injuries from another. Nutritional sv screening: No deficits noted. Tuberculosis screening: No symptoms or risk factors identified. Fall Risk None identified. Assessment: 11:45 General: Appears in no apparent distress. uncomfortable, slender, Behavior is calm, sv cooperative. General: Reports feeling ill for > 3 days, fatigue for >3 days. General: Reports decreased appetite. Pain: Complains of pain in back Pain does not radiate. Pain currently is 8 out of 10 on a pain scale. Pain began 2-3 days ago. Is continuous. Neuro: Level of Consciousness is awake, alert, obeys commands, Oriented to person, place, time, situation, Moves all extremities. Full function Gait is steady. Cardiovascular: Patient's skin is warm and dry. Pulses are palpable in right radial artery and left radial artery Rhythm is sinus tachycardia. Respiratory: Reports cough that is non-productive, pain with cough Airway is patent Respiratory effort is even, unlabored, Respiratory pattern is symmetrical, tachypnea. GI: Abdomen is flat, non-distended, Reports intolerance of fluids, intolerance of food, nausea, vomiting. Derm: Skin is intact, Skin is dry, Skin is pale, Skin temperature is warm. Musculoskeletal: Range of motion: intact in all extremities. 12:03 Reassessment: Patient appears in no apparent distress at this time. No changes from sv previously documented assessment. Patient and/or family updated on plan of care and expected duration. Pain level reassessed. Patient is alert, oriented x 3, equal unlabored respirations, skin warm/dry/pink. 12:39 Reassessment: Patient appears in no apparent distress at this time. Patient and/or sv family updated on plan of care and expected duration. Pain level reassessed. Patient is alert, oriented x 3, equal unlabored respirations, skin warm/dry/pink. GI: Patient currently denies nausea. 13:00 General: Appears in no apparent distress. uncomfortable, slender, Behavior is calm, sv cooperative. Pain: Complains of pain in back Pain currently is 8 out of 10 on a pain scale. Neuro: Level of Consciousness is awake, alert, obeys commands, Oriented to person, place, time, situation, Moves all extremities. Full function. Respiratory: Airway is patent Respiratory effort is even, unlabored, Respiratory pattern is symmetrical, Kussmaul tachypnea Informed Dr Arrington of the change in respiratory status. 13:30 Reassessment: Patient appears in no apparent distress at this time. Patient and/or sv family updated on plan of care and expected duration. Pain level reassessed. Patient is alert, oriented x 3, equal unlabored respirations, skin warm/dry/pink. Pain: Complains of pain in back Pain currently is 8 out of 10 on a pain scale. 14:35 Reassessment: Patient appears in no apparent distress at this time. Patient and/or sv family updated on plan of care and expected duration. Pain level reassessed. Patient is alert, oriented x 3, equal unlabored respirations, skin warm/dry/pink. 14:40 Reassessment: Patient appears in no apparent distress at this time. No changes from sv previously documented assessment. Patient and/or family updated on plan of care and expected duration. Pain level reassessed. Patient is alert, oriented x 3, equal unlabored respirations, skin warm/dry/pink. Dr Nix at bedside. Family at bedside as well. 15:30 Reassessment: Patient appears in no apparent distress at this time. Patient and/or sv family updated on plan of care and expected duration. Pain level reassessed. Patient is alert, oriented x 3, equal unlabored respirations, skin warm/dry/pink. Patient states symptoms have improved. 16:22 Reassessment: Patient appears in no apparent distress at this time. Patient and/or sv family updated on plan of care and expected duration. Pain level reassessed. Patient is alert, oriented x 3, equal unlabored respirations, skin warm/dry/pink. Patient states symptoms have improved. Vital Signs: 11:39 BP 131 / 83; Pulse 141; Resp 20; Temp 100.5; Pulse Ox 91% on R/A; Weight 68.04 kg (R); sr5 Height 5 ft. 9 in. (175.26 cm); Pain 8/10; 12:00 BP 136 / 88; Pulse 126; Resp 20; Pulse Ox 97% ; sv 12:45 BP 148 / 92; Pulse 113; Resp 17; Temp 99.6(TE); Pulse Ox 96% on R/A; mh5 13:00 BP 140 / 87; Pulse 113; Resp 40; Pulse Ox 96% on 2 lpm NC; sv 13:12 Weight 62.91 kg; mh5 13:30 BP 134 / 82; Pulse 118; Resp 34; Temp 100.8(O); Pulse Ox 95% on 2 lpm NC; sv 14:30 BP 139 / 86; Pulse 124; Resp 31; Pulse Ox 95% on 2 lpm NC; sv 15:00 BP 133 / 80; Pulse 112; Resp 27; Pulse Ox 95% on 2 lpm NC; sv 15:30 Temp 99.9; sg 15:30 BP 132 / 82; Pulse 111; Resp 20 S; Pulse Ox 96% on R/A; sg 16:00 BP 133 / 88; Pulse 114; Resp 20; Pulse Ox 96% on 2 lpm NC; sv 13:12 Body Mass Index 20.48 (62.91 kg, 175.26 cm) [facility] ED Course: 11:27 Patient arrived in ED. as 11:38 Triage completed. sr5 11:39 Arm band placed on right wrist. sr5 11:42 Nicolas Arrington MD is Attending Physician. ayaka 11:44 Imelda Proctor RN is Primary Nurse. sv 11:45 Patient has correct armband on for positive identification. Placed in gown. Bed in low sv position. Call light in reach. Adult w/ patient. Pulse ox on. NIBP on. Door closed. Head of bed elevated. 11:45 First set of blood cultures drawn by me. Inserted saline lock: 20 gauge in right sv forearm, using aseptic technique. Blood collected. Flushed right forearm with 5 ml normal saline. 12:00 Second set of blood cultures drawn by me. sv 12:07 X-ray(s) taken. sv 12:13 XRAY Chest (1 view) In Process Unspecified. EDMS 12:25 ED physician to see patient. sv 12:39 Alex Nix MD is Hospitalizing Provider. [facility] 12:40 Urine Dipstick--Ancillary (enter results) Sent. 5 12:41 Urine Culture Sent. 5 12:48 Urine collected: clean catch specimen, clear. 5 13:00 Inserted saline lock: 20 gauge in right wrist, using aseptic technique. Flushed right sv with 5 ml normal saline. 16:22 No provider procedures requiring assistance completed. Patient admitted, IV remains in sv place. intact. Administered Medications: 12:03 Drug: NS 0.9% 1000 ml Route: IV; Rate: 1 bolus; Site: right forearm; sv 13:34 Follow up: Response: No adverse reaction; IV Status: Completed infusion; IV Intake: sv 1000ml 12:03 Drug: NS 0.9% 1000 ml Route: IV; Rate: 1 bolus; Site: right forearm; sv 13:33 Follow up: Response: No adverse reaction; IV Status: Completed infusion; IV Intake: sv 1000ml 12:03 Drug: Zofran 4 mg Route: IVP; Site: right forearm; sv 12:43 Follow up: Response: No adverse reaction sv 12:06 Drug: Rocephin 1 grams Route: IV; Rate: per protocol; Site: right forearm; sv 12:08 Follow up: Response: No adverse reaction; IV Status: Completed infusion; IV Intake: 10mlsv 12:39 Drug: Tylenol 650 mg Route: PO; sv 13:34 Follow up: Response: No adverse reaction sv 13:08 Drug: Rocephin 1 grams Route: IV; Rate: per protocol; Site: right wrist; sv 13:10 Follow up: Response: No adverse reaction; IV Status: Completed infusion; IV Intake: 10mlsv 13:08 Drug: Pepcid 20 mg Route: IVP; Site: right wrist; sv 13:31 Follow up: Response: No adverse reaction sv 13:08 Drug: Tamiflu 75 mg Route: PO; sv 13:31 Follow up: Response: No adverse reaction sv 13:13 Drug: Zofran 4 mg Route: IVP; Site: right wrist; sv 13:35 Follow up: Response: No adverse reaction sv 13:14 Not Given (Duplicate Order): Insulin Drip - (Insulin Regular Human 100 units, NS 0.9% ayaka 100 ml) IV at 4 units/hr continuous; Standard concentration 1unit/ml; Dose for DKA is 0.1 units/kg/hr 13:26 Drug: Insulin Drip - (Insulin Regular Human 100 units, NS 0.9% 100 ml) {Co-Signature: sv ss (Ligia Montez RN).} Route: IV; Rate: 3 units/hr; Site: right wrist; 14:35 Follow up: Rate change 2.5 units/hr sv 13:30 Drug: Zithromax 500 mg Route: IVPB; Infused Over: 1 hrs; Site: right forearm; sv 13:30 Drug: morphine 2 mg {Note: rass1.} Route: IVP; Site: right forearm; sv 14:30 Follow up: Response: No adverse reaction; RASS: Alert and Calm (0) sv 13:30 Drug: NS 0.9% 1000 ml Route: IV; Rate: 1 bolus; Site: right forearm; sv 13:33 Drug: NS 0.9% 1000 ml Route: IV; Rate: 125 ml/hr; Site: right wrist; sv 13:46 Drug: Xopenex 1.25 mg Route: Inhalation; sv 13:46 Drug: AtroVENT Aerosol 0.5 mg Route: Inhalation; sv 13:46 Drug: Motrin 600 mg Route: PO; sv 14:32 Follow up: Response: No adverse reaction sv Intake: 12:08 IV: 10ml; Total: 10ml. sv 13:10 IV: 10ml; Total: 20ml. sv 13:33 IV: 1000ml; Total: 1020ml. sv 13:34 IV: 1000ml; Total: 2020ml. sv Output: 14:00 Urine: 150ml (Voided); Total: 150ml. sv 15:51 Urine: 300ml (Voided); Total: 450ml. sv Outcome: 12:41 Decision to Hospitalize by Provider. ayaka 16:22 Patient left the ED. la1 16:22 Admitted to ICU accompanied by nurse, family with patient, via wheelchair, room 8, with sv oxygen, on monitor, with chart, Report called to Lexi GUTIERREZ 16:22 Condition: stable 16:22 Instructed on the need for admit. Signatures: Dispatcher [employer] Imelda Shen RN RN sv Gay, Steven, RN RN sg Anderson, Corey, MD MD cha Martinez, Amelia as Attema, Lee, BIT SETTER-C BIT SETTER-Cla1 Kyle Hartley RN RN sr5 Zulema Shaw RN
--- NOTE | 2019-02-04 12:42 | EDPHYS ---
Physician Documentation [facility] Name: Greyson Correia Age: 23 yrs Sex: Male : 1995 Arrival Date: 02/04/2019 Time: 11:27 Bed 6 Private MD: ALEKSANDRA Physician Nicolas Arrington HPI: 02/04 12:30 This 23 yrs old Male presents to ER via Ambulatory with complaints of ayaka Decreased Appetite, Vomiting. 12:30 The patient presents to the emergency department with nausea, vomiting, that is ayaka continuous. Onset: The symptoms/episode began/occurred 2 day(s) ago. Possible causes: unknown. The symptoms are aggravated by nothing. The symptoms are alleviated by nothing. Associated signs and symptoms: Pertinent positives: abdominal pain, fever, nausea, vomiting. Severity of symptoms: At their worst the symptoms were mild moderate in the emergency department the symptoms are unchanged. The patient has not experienced similar symptoms in the past. Historical: - Allergies: 11:45 No Known Allergies; sv - PMHx: 11:39 Diabetes - IDDM; Bryn's; Fibromyalgia; insulin pump; sr5 - PSHx: 11:39 None; sr5 - Immunization history:: Flu vaccine is not up to date. - Social history:: Smoking status: Patient/guardian denies using tobacco, the patient reports quitting approximately 1 years ago. - Ebola Screening: : Patient negative for fever greater than or equal to 101.5 degrees Fahrenheit, and additional compatible Ebola Virus Disease symptoms. - Family history:: not pertinent. ROS: 12:30 Constitutional: Negative for fever, chills, and weight loss, Eyes: Negative for injury, ayaka pain, redness, and discharge, ENT: Negative for injury, pain, and discharge, Neck: Negative for injury, pain, and swelling, Abdomen/GI: Negative for abdominal pain, nausea, vomiting, diarrhea, and constipation, Back: Negative for injury and pain, : Negative for injury, bleeding, discharge, and swelling, MS/Extremity: Negative for injury and deformity, Skin: Negative for injury, rash, and discoloration, Neuro: Negative for headache, weakness, numbness, tingling, and seizure, Psych: Negative for depression, anxiety, suicide ideation, homicidal ideation, and hallucinations, Allergy/Immunology: Negative for hives, rash, and allergies, Endocrine: Negative for neck swelling, polydipsia, polyuria, polyphagia, and marked weight changes, Hematologic/Lymphatic: Negative for swollen nodes, abnormal bleeding, and unusual bruising. 12:30 Cardiovascular: Positive for chest pain. 12:30 Respiratory: Positive for cough, shortness of breath, wheezing, expiratory. Exam: 12:30 Constitutional: This is a well developed, well nourished patient who is awake, alert, ayaka and in no acute distress. Head/Face: Normocephalic, atraumatic. Eyes: Pupils equal round and reactive to light, extra-ocular motions intact. Lids and lashes normal. Conjunctiva and sclera are non-icteric and not injected. Cornea within normal limits. Periorbital areas with no swelling, redness, or edema. ENT: Nares patent. No nasal discharge, no septal abnormalities noted. Tympanic membranes are normal and external auditory canals are clear. Oropharynx with no redness, swelling, or masses, exudates, or evidence of obstruction, uvula midline. Mucous membranes moist. Neck: Trachea midline, no thyromegaly or masses palpated, and no cervical lymphadenopathy. Supple, full range of motion without nuchal rigidity, or vertebral point tenderness. No Meningismus. Chest/axilla: Normal chest wall appearance and motion. Nontender with no deformity. No lesions are appreciated. Abdomen/GI: Soft, non-tender, with normal bowel sounds. No distension or tympany. No guarding or rebound. No evidence of tenderness throughout. Back: No spinal tenderness. No costovertebral tenderness. Full range of motion. Male : Normal genitalia with no discharge or lesions. Skin: Warm, dry with normal turgor. Normal color with no rashes, no lesions, and no evidence of cellulitis. MS/ Extremity: Pulses equal, no cyanosis. Neurovascular intact. Full, normal range of motion. Neuro: Awake and alert, GCS 15, oriented to person, place, time, and situation. Cranial nerves II-XII grossly intact. Motor strength 5/5 in all extremities. Sensory grossly intact. Cerebellar exam normal. Normal gait. Psych: Awake, alert, with orientation to person, place and time. Behavior, mood, and affect are within normal limits. 12:30 Cardiovascular: Rate: tachycardic, Rhythm: regular, Pulses: no pulse deficits are appreciated, Heart sounds: normal, Edema: is not appreciated, JVD: is not appreciated. Vital Signs: 11:39 BP 131 / 83; Pulse 141; Resp 20; Temp 100.5; Pulse Ox 91% on R/A; Weight 68.04 kg (R); sr5 Height 5 ft. 9 in. (175.26 cm); Pain 8/10; 12:00 BP 136 / 88; Pulse 126; Resp 20; Pulse Ox 97% ; sv 12:45 BP 148 / 92; Pulse 113; Resp 17; Temp 99.6(TE); Pulse Ox 96% on R/A; mh5 13:00 BP 140 / 87; Pulse 113; Resp 40; Pulse Ox 96% on 2 lpm NC; sv 13:12 Weight 62.91 kg; mh5 13:30 BP 134 / 82; Pulse 118; Resp 34; Temp 100.8(O); Pulse Ox 95% on 2 lpm NC; sv 14:30 BP 139 / 86; Pulse 124; Resp 31; Pulse Ox 95% on 2 lpm NC; sv 15:00 BP 133 / 80; Pulse 112; Resp 27; Pulse Ox 95% on 2 lpm NC; sv 15:30 Temp 99.9; sg 15:30 BP 132 / 82; Pulse 111; Resp 20 S; Pulse Ox 96% on R/A; sg 16:00 BP 133 / 88; Pulse 114; Resp 20; Pulse Ox 96% on 2 lpm NC; sv 13:12 Body Mass Index 20.48 (62.91 kg, 175.26 cm) [facility] MDM: 11:42 Patient medically screened. [facility] 12:44 Data reviewed: vital signs, nurses notes, lab test result(s), EKG, radiologic studies, ayaka plain films. 02/04 11:49 Order name: Basic Metabolic Panel; Complete Time: 12:[address] [facility] 02/04 11:49 Order name: CBC with Diff; Complete Time: 12:[address] [facility] 02/04 11:49 Order name: LFT's; Complete Time: 12:[address] [facility] 02/04 11:49 Order name: Magnesium; Complete Time: 12:[address] [facility] 02/04 11:49 Order name: Troponin (emerg Dept Use Only); Complete Time: 12:[address] [facility] 02/04 11:49 Order name: Lactate; Complete Time: 12:[address] [facility] 02/04 11:49 Order name: Blood Culture Adult (2) [facility] 02/04 11:49 Order name: Urine Culture [facility] 02/04 11:49 Order name: Ketone, Serum; Complete Time: 12:[address] [facility] 02/04 12:17 Order name: Glucose, Ancillary Testing; Complete Time: 12:27 EDID 02/04 12:24 Order name: ABG 02/04 12:39 Order name: Urine Dipstick--Ancillary (enter results) 02/04 12:43 Order name: Manual Differential; Complete Time: 12:58 EDMS 02/04 13:17 Order name: Acetone Level EDMS 02/04 13:17 Order name: Acetone Level EDMS 02/04 13:18 Order name: Acetone Level EDMS 02/04 13:18 Order name: Acetone Level EDMS 02/04 13:18 Order name: Basic Metabolic Panel EDID 02/04 13:18 Order name: Basic Metabolic Panel EDMS 02/04 13:18 Order name: Basic Metabolic Panel EDMS 02/04 13:18 Order name: Basic Metabolic Panel EDMS 02/04 13:18 Order name: CBC with Automated Diff EDMS 02/04 13:18 Order name: CBC with Automated Diff EDMS 02/04 13:18 Order name: CBC with Automated Diff EDMS 02/04 13:18 Order name: CBC with Automated Diff EDMS 02/04 13:18 Order name: Magnesium EDMS 02/04 13:18 Order name: Magnesium EDMS 02/04 13:18 Order name: Magnesium EDMS 02/04 13:18 Order name: Magnesium EDMS 02/04 11:49 Order name: XRAY Chest (1 view); Complete Time: 12:[address] [facility] 02/04 11:49 Order name: EKG; Complete Time: 11:[address] [facility] 02/04 11:49 Order name: Cardiac monitoring; Complete Time: 12:[address] [facility] 02/04 11:49 Order name: EKG - Nurse/Tech; Complete Time: 12:[address] [facility] 02/04 11:49 Order name: IV Saline Lock; Complete Time: 12:[address] [facility] 02/04 11:49 Order name: Labs collected and sent; Complete Time: 12:[address] [facility] 02/04 11:49 Order name: O2 Per Protocol; Complete Time: 12:[address] [facility] 02/04 11:49 Order name: O2 Sat Monitoring; Complete Time: 13:[address] [facility] 02/04 13:17 Order name: CONS Pharmacy Consult [facility] 02/04 13:17 Order name: CONS Pharmacy Consult [facility] 02/04 13:17 Order name: NPO [facility] 02/04 14:30 Order name: Influenza Screen (A EDID 02/04 14:48 Order name: Glucose, Ancillary Testing EDID 02/04 16:03 Order name: Glucose, Ancillary Testing [facility] 02/04 11:49 Order name: Urine Dipstick-Ancillary (obtain specimen); Complete Time: 12:[address] [facility] 02/04 12:43 Order name: IV Saline Lock - Large Bore; Complete Time: 13:[address] [facility] Administered Medications: 12:03 Drug: NS 0.9% 1000 ml Route: IV; Rate: 1 bolus; Site: right forearm; sv 13:34 Follow up: Response: No adverse reaction; IV Status: Completed infusion; IV Intake: sv 1000ml 12:03 Drug: NS 0.9% 1000 ml Route: IV; Rate: 1 bolus; Site: right forearm; sv 13:33 Follow up: Response: No adverse reaction; IV Status: Completed infusion; IV Intake: sv 1000ml 12:03 Drug: Zofran 4 mg Route: IVP; Site: right forearm; sv 12:43 Follow up: Response: No adverse reaction sv 12:06 Drug: Rocephin 1 grams Route: IV; Rate: per protocol; Site: right forearm; sv 12:08 Follow up: Response: No adverse reaction; IV Status: Completed infusion; IV Intake: 10mlsv 12:39 Drug: Tylenol 650 mg Route: PO; sv 13:34 Follow up: Response: No adverse reaction sv 13:08 Drug: Rocephin 1 grams Route: IV; Rate: per protocol; Site: right wrist; sv 13:10 Follow up: Response: No adverse reaction; IV Status: Completed infusion; IV Intake: 10mlsv 13:08 Drug: Pepcid 20 mg Route: IVP; Site: right wrist; sv 13:31 Follow up: Response: No adverse reaction sv 13:08 Drug: Tamiflu 75 mg Route: PO; sv 13:31 Follow up: Response: No adverse reaction sv 13:13 Drug: Zofran 4 mg Route: IVP; Site: right wrist; sv 13:35 Follow up: Response: No adverse reaction sv 13:14 Not Given (Duplicate Order): Insulin Drip - (Insulin Regular Human 100 units, NS 0.9% ayaka 100 ml) IV at 4 units/hr continuous; Standard concentration 1unit/ml; Dose for DKA is 0.1 units/kg/hr 13:26 Drug: Insulin Drip - (Insulin Regular Human 100 units, NS 0.9% 100 ml) {Co-Signature: [facility] (Ligia Montez RN).} Route: IV; Rate: 3 units/hr; Site: right wrist; 14:35 Follow up: Rate change 2.5 units/hr sv 13:30 Drug: Zithromax 500 mg Route: IVPB; Infused Over: 1 hrs; Site: right forearm; sv 13:30 Drug: morphine 2 mg {Note: rass1.} Route: IVP; Site: right forearm; sv 14:30 Follow up: Response: No adverse reaction; RASS: Alert and Calm (0) sv 13:30 Drug: NS 0.9% 1000 ml Route: IV; Rate: 1 bolus; Site: right forearm; sv 13:33 Drug: NS 0.9% 1000 ml Route: IV; Rate: 125 ml/hr; Site: right wrist; sv 13:46 Drug: Xopenex 1.25 mg Route: Inhalation; sv 13:46 Drug: AtroVENT Aerosol 0.5 mg Route: Inhalation; sv 13:46 Drug: Motrin 600 mg Route: PO; sv 14:32 Follow up: Response: No adverse reaction sv Disposition: 02/04/19 12:41 Hospitalization ordered by Alex Nix for Inpatient Admission. Preliminary diagnosis are Type 1 diabetes mellitus with ketoacidosis without coma, Fever, unspecified, Pneumonia due to other specified bacteria, Influenza due to certain identified influenza viruses, Weakness. - Bed requested for Intensive Care Unit. - Status is Inpatient Admission. la1 - Condition is Fair. - Problem is new. - Symptoms have improved. UTI on Admission? No Signatures: Dispatcher [employer] Imelda Shen RN RN sv Anderson, Corey, MD MD cha Attema, Lee, WARM IN-C WARM IN-Cla1 Kyle Hartley RN RN sr5 Charley Hope RN ss Corrections: (The following items were deleted from the chart) 12:51 12:39 Arterial Blood Gas+RC.LAB.BRZ ordered. EDMS EDMS 14:14 12:41 Hospitalization Ordered by Alex Nix MD for Inpatient Admission. eb Preliminary diagnosis is Type 1 diabetes mellitus with ketoacidosis without coma; Fever, unspecified; Pneumonia due to other specified bacteria; Influenza due to certain identified influenza viruses; Weakness. Bed requested for Intensive Care Unit. Status is Inpatient Admission. Condition is Fair. Problem is new. Symptoms have improved. UTI on Admission? No. ayaka 14:58 14:14 02/04/2019 12:41 Hospitalization Ordered by Alex Nix MD for Inpatient eb Admission. Preliminary diagnosis is Type 1 diabetes mellitus with ketoacidosis without coma; Fever, unspecified; Pneumonia due to other specified bacteria; Influenza due to certain identified influenza viruses; Weakness. Bed requested for [facility] ER HOLD. Status is Inpatient Admission. Condition is Fair. Problem is new. Symptoms have improved. UTI on Admission? No. eb 16:22 14:58 02/04/2019 12:41 Hospitalization Ordered by Alex Nix MD for Inpatient la1 Admission. Preliminary diagnosis is Type 1 diabetes mellitus with ketoacidosis without coma; Fever, unspecified; Pneumonia due to other specified bacteria; Influenza due to certain identified influenza viruses; Weakness. Bed requested for Intensive Care Unit. Status is Inpatient Admission. Condition is Fair. Problem is new. Symptoms have improved. UTI on Admission? No. eb
[2019-02-04 12:43] LABS: Blood Morphology Comment NOT SEEN (NOT SEEN); Platelet Estimate ADEQ
[2019-02-04] MEDS ORDERED: FAMOTIDINE 20 MG/2 ML VIAL IV ONE (12:49)
[2019-02-04] MEDS ORDERED: OSELTAMIVIR 75 MG CAP ONE (12:49)
[2019-02-04 12:54] LABS: Arterial Blood Carboxyhemoglob 1.2 % (0-1.5); Blood Gas Oxyhemoglobin 91.5 % (94-97); Blood O2 Saturation 93.6 % (92-98.5)
[2019-02-04] MEDS ORDERED: INSULIN -REGULAR HUMAN 100 UNIT in NA CHLORIDE 0.9% 100 ML IV SCH (13:00)
[2019-02-04] MEDS ORDERED: AZITHROMYCIN IV 500 MG in NA CHLORIDE 0.9% 250 ML IVPB ONE (13:00)
[2019-02-04] MEDS ORDERED: ONDANSETRON 4 MG/2 ML VIAL IV PRN (13:11)
[2019-02-04] MEDS ORDERED: MORPHINE 2 MG/ML SYR ONE (13:22)
[2019-02-04] MEDS ORDERED: IBUPROFEN 200 MG TAB PO ONE (13:41)
[2019-02-04] MEDS ORDERED: IBUPROFEN 400 MG TAB ONE (13:41)
[2019-02-04] MEDS ORDERED: IPRATROPIUM BROM 0.5MG/2.5ML ONE (13:42)
[2019-02-04] MEDS ORDERED: LEVALBUTEROL 1.25 MG/3 ML NEB ONE (13:42)
[2019-02-04] MEDS ORDERED: NACHLORIDE 0.45% 1,000 ML with POTASSIUM CL 20 MEQ IV SCH ×2 (14:00)
[2019-02-04 14:12] LABS: Urine Blood 1+ (NEG); Urine Glucose 2+ (NEG); Urine Protein 3+ (NEG); Urine pH 5.5 (5.0-7.0)
[2019-02-04 16:58] VITALS: BMI 20.5
[2019-02-04] MEDS ORDERED: [UNRECOGNIZED DRUG - MIXTURE] IV SCH (17:00)
[2019-02-04] MEDS: Levofloxacin 750mg IV 750 MG/150 ML BAG IV SCH (17:35)
[2019-02-04] MEDS: D5.45NS W/KCL 20MEQ 1,000 ML IV SCH ×2 (17:35→21:00)
[2019-02-04 17:53] LABS: BUN Blood Urea Nitrogen 10 mg/dL (7-18); Bicarbonate 18 mmol/L (21-32); Glucose Level 171 mg/dL (74-106); Potassium 3.7 mmol/L (3.5-5.1); Sodium Level 136 mmol/L (136-145)
[2019-02-04] MEDS: MORPHINE 2 MG/ML SYR IV PRN (18:50)
[2019-02-04] MEDS: OSELTAMIVIR 75 MG CAP PO SCH (20:55)
[2019-02-04] MEDS: GUAIFENESIN/DM 5 ML UCUP PO PRN (20:55)
[2019-02-04] MEDS: ONDANSETRON 4 MG/2 ML VIAL IV PRN (20:55)
[2019-02-04 21:26] LABS: BUN Blood Urea Nitrogen 9 mg/dL (7-18); Bicarbonate 19 mmol/L (21-32); Glucose Level 227 mg/dL (74-106); Potassium 3.7 mmol/L (3.5-5.1); Sodium Level 135 mmol/L (136-145)
[2019-02-04] MEDS: D5.45NS W/KCL 20MEQ 20 MEQ/1,000 ML BAG IV SCH (22:43)
[2019-02-05] MEDS: GUAIFENESIN/DM 5 ML UCUP PO PRN ×2 (00:54→12:40)
[2019-02-05] MEDS: MORPHINE 2 MG/ML SYR IV PRN ×3 (00:59→11:34)
--- NOTE | 2019-02-05 01:40 | HP ---
Date of Admission: 02/04/2019 Reason For Admission: Nausea, vomiting. History Of Present Illness: This is a 23-year-old gentleman with history significant for Bryn d isease, insulin-dependent diabetes mellitus on insulin pump, fibromyalgia, presents to emergency room with history of 1 month of not feeling well, fatigue, weakness. He was evaluated in the emergency r oom yesterday, found to have a positive for flu. He was given Tamiflu and discharged home. Patient did not feel much better and he continued to have abdominal pain, low-grade temperature, nausea, vomi ting. He lost his voice due to the acid reflux from the nausea, vomiting. He started to come back t o the emergency room today where he was evaluated. He was found to have a glucose around 222. He coleman d anion gap of 17. He had acetone in the urine. He was started on an insulin drip and admitted for DKA. He is currently weak, fatigued. He has diffuse pain under his skin and he thinks he may have f ibromyalgia. He went to see Neurology and his appointment is still pending, but his pain is chronic. His father and mother at the bedside. Past Medical History: Significant for diabetes mellitus, insulin dependent on the pump, Bryn an d ? Fibromyalgia. Surgeries: None. Allergies: NONE. Social History: He is single. He does not drink, smoke, or use any street drugs. He is not . He has no kids. Family History: Both father mother alive and they are healthy. Review of Systems: Patient had fatigue, weakness at home and nausea, vomiting. There was no abdominal pain. No diarrhe a. No dysuria, frequency, urgency, hematuria. There is no history of depression, anxiety, seizure o r stroke. Patient reports a history of cough, mild shortness of breath as well as chest pain, which is probably the same pain he describing as a fibromyalgia pain which is chronic. Physical Examination: Vital Signs: Blood pressure is 131/81, respiratory rate 20, pulse 126, saturating 97% on 2 L. General: He is alert and oriented x3. Does look in mild distress. HEENT: Atraumatic, normocephalic. PERRLA. Oral mucosa is dry. Neck: Supple. No JVD. No bruits. Chest: Clear to auscultation. Good air entry. Heart: Regular rate and rhythm. S1, S2 normal. No gallop or murmur. Tachycardic. Abdomen: Soft, nontender. No masses. No hepatosplenomegaly. Positive bowel sounds. Extremities: No clubbing. No signs or edema. No calf tenderness. Neurologic: Grossly intact. Cranial nerve exam 2 through 12 intact. Normal sensation. Normal refl exes. Normal muscle strength. Laboratory Data: Labs today, CBC was normal except for monocytosis of 23,000. ABG, pH of 7.36, CO2 of 22, O2 of 68. Chemistry within normal except for sodium 130, chloride 97, glucose 222. Acetone i s normal. Chest x-ray done in the emergency room showed patchy pneumonia in the left lower lobe, new from Decem juan 26. Assessment/plan: 23-year-old gentleman history of insulin-dependent diabetes mellitus on insulin pum p, who presented with progressive shortness of breath, cough, found to be in diabetic ketoacidosis. 1.Diabetic ketoacidosis with anion gap of 17. Patient was started on IV fluid boluses in the emerge ncy room. Continue with that 250 cc/hour of fluid as well as insulin drip at 0.1 unit/kg/hour until anion gap closes. In the meantime, we will watch electrolytes and replace potassium as needed. 2.Pneumonia on chest x-ray. The patient will be started on Levaquin 750 daily. He already received Zithromax in the emergency room. Blood culture already done. Screening for flu order, but patient already positive yesterday. Continue Tamiflu orally as patient was tested positive for the flu yeste rday. 3.Fibromyalgia. Patient on a p.r.n. morphine. 4.Nausea, vomiting, probably secondary to diabetic ketoacidosis. The patient will be on Zofran 8 mg every 6 hours. 5.Deep vein thrombosis prophylaxis, no need, patient is young. ULISES/JADIEL Voice ID: [id number]
[2019-02-05 05:05] LABS: Absolute Lymphocytes (CBC) 1.1 K/uL (0.7-4.9); Basophils % 0.2 % (0-1.3); Hematocrit 35.4 % (39.6-49.0); Lymphocytes % 13.6 % (15.3-44.8); MPV 7.2 fL (7.6-11.3); RBC Red Blood Cell Count 3.91 M/uL (4.33-5.43)
[2019-02-05 05:27] LABS: BUN Blood Urea Nitrogen 5 mg/dL (7-18); Bicarbonate 22 mmol/L (21-32); Glucose Level 195 mg/dL (74-106); Potassium 3.2 mmol/L (3.5-5.1); Sodium Level 133 mmol/L (136-145)
[2019-02-05] MEDS ORDERED: D50W 25 GM/50 ML SYRINGE/VIAL IV PRN (06:03)
[2019-02-05] MEDS ORDERED: GLUCAGON 1 MG/VIAL IM PRN (06:03)
[2019-02-05] MEDS ORDERED: MAGNESIUM SULFATE 1 gm IVPB 1 GM/100 ML BAG IV ONE (06:09)
[2019-02-05] MEDS: D5.45NS W/KCL 20MEQ 20 MEQ/1,000 ML BAG IV SCH (06:22)
[2019-02-05] MEDS: INSULIN GLARGINE 100 UNITS/ML SQ SCH ×2 (06:33→21:03)
[2019-02-05] MEDS: OSELTAMIVIR 75 MG CAP PO SCH ×2 (08:09→21:03)
[2019-02-05] MEDS: ENOXAPARIN 40 MG/0.4 ML SQ SCH (08:09)
[2019-02-05] MEDS: INSULIN -REGULAR HUMAN 50 UNIT/0.5 ML ML SQ SCH ×4 (08:09→21:03)
[2019-02-05] MEDS ORDERED: HYDRALAZINE HCL 20 MG/ML VIAL IV PRN (08:58)
[2019-02-05] MEDS ORDERED: POTASSIUM CL SA 10 MEQ TAB PO ONE (09:00)
[2019-02-05] MEDS: NA CHLORIDE 0.9% 1,000 ML IV SCH ×2 (09:09→21:02)
[2019-02-05] MEDS ORDERED: INFLUENZA VACCINE (for 3y+) 0.5 ML DOSE IMVAC ONE (10:00)
--- NOTE | 2019-02-05 10:37 | RAD REPORT ---
EXAM DESCRIPTION: Anne Pa And Lat (2 Views)02/05/2019 10:27 am CLINICAL HISTORY: Cough COMPARISON: February 04, 2019 FINDINGS: [id number] left lower lobe and lingular opacities appear mildly worsened. Right lung appears clear. Heart is normal size IMPRESSION: Mild worsening in a left basilar pneumonia
--- NOTE | 2019-02-05 11:45 | EKG ---
Test Date: 2019-02-04 Test Time: 12:17:23 Drop Board Man: SWG MEASUREMENT RESULTS: Intervals: Rate: 113 NE: 122 QRSD: 84 QT: 314 QTc: 430 [place]: P: 75 NE: 122 QRS: 62 T: 72 INTERPRETIVE STATEMENTS: Sinus tachycardia Otherwise normal ECG Compared to ECG 02/02/2019 23:11:17 No significant changes Electronically Signed On 02-05-19 11:42:12 [employer] by Kevin Whitfield
[2019-02-05] MEDS ORDERED: PNEUMOCOCCAL VACCINE 0.5 ML IMVAC ONE (12:00)
[2019-02-05] MEDS: DULOXETINE 30 MG CAP PO SCH ×2 (12:31→21:03)
[2019-02-05] MEDS: ALBUTEROL 2.5 MG/3 ML NEB SOL NEB SCH ×2 (13:40→20:00)
[2019-02-05] MEDS: IPRATROPIUM BROM 0.5MG/2.5ML NEB SCH ×2 (13:40→20:00)
--- NOTE | 2019-02-05 14:04 | PN ---
Subjective: Currently, patient lying in bed. He looks comfortable. He did his breakfast. His naus ea resolved from last night. He continues to have some pain and ache, which is apparently chronic. No fever, no chills. Had low-grade temperature throughout the night. Review of Systems: Otherwise as below. Objective: Vital Signs: Blood pressure is 138/92, respiratory rate 28, pulse 103, temperature 99.6. General: He is alert and oriented x3. Does not look in any distress. Mildly tachypneic. HEENT: Atraumatic, normocephalic. PERRLA. Oral mucosa is moist. Neck: Supple. No JVD. No bruits. Chest: Clear to auscultation with a few crackles in the left lower lobe. Heart: Regular rate and rhythm. Tachy. No gallop or murmur. Abdomen: Soft, nontender with no hepatosplenomegaly. Positive bowel sounds. Extremities: No clubbing, cyanosis, or edema. No calf tenderness. Neurologic: Grossly intact. Cranial nerve exam 2 through 12 are intact. Normal sensation. Normal reflexes. Normal muscle strength. Laboratory Data: Today, white blood cells at 8.3, hemoglobin 12.6, platelets at 223. Chemistry show ed sodium 133, potassium 3.2, BUN of 5, glucose of 195, in the range of 150 to 208. Magnesium 1.6. Assessment And Plan: 1.This is a 23-year-old gentleman with diabetic ketoacidosis with history of diabetes mellitus, on i nsulin pump; diabetic ketoacidosis, resolved. Anion gap closed last night. The patient is off insul in drip. He is currently on Lantus 10 units twice a day as well as insulin sliding scale. Continue for now. 2.Left lower lobe pneumonia on chest x-ray. Continue on Levaquin. Blood culture is still pending. Patient continues to be slightly tachypneic. I will order breathing treatments for him every 6 hour s with Combivent inhaler and nebulizer. Blood culture so far negative and UA was negative. 3.History of fibromyalgia. Patient in progress to have diagnosis done by Neurology, still pending. 4.Nausea and vomiting, resolved. 5.Tachycardia ? sepsis related. I will continue IV fluids, but we will switch his fluids to normal saline at this point. 6.No need for deep venous thrombosis prophylaxis. Patient is ambulatory, is very young. 7.Hypokalemia. We will replace. He is on potassium protocol. 8.Hypomagnesemia. We will replace. He is on magnesium replacement protocol. 9.We will check hemoglobin A1c in a.m. ULISES/JADIEL Voice ID: [id number] Report ID: [id number]
[2019-02-05] MEDS: POTASSIUM 25 MEQ EFFERV TAB PO ONE ×2 (15:55→16:48)
[2019-02-05] MEDS: Levofloxacin 750mg IV 750 MG/150 ML BAG IV SCH (16:49)
[2019-02-05] MEDS: ONDANSETRON 4 MG/2 ML VIAL IV PRN (16:51)
[2019-02-05] MEDS ORDERED: PROMETHAZINE INJ 25 MG/ML AMP IV PRN (19:03)
[2019-02-05] MEDS: KCL 20 MEQ/100 mL IVPB 20 MEQ/100 ML BAG IV SCH (21:02)
[2019-02-06] MEDS: KCL 20 MEQ/100 mL IVPB 20 MEQ/100 ML BAG IV SCH (00:48)
[2019-02-06] MEDS ORDERED: ALPRAZOLAM 0.25 MG TABLET PO PRN (01:13)
[2019-02-06] MEDS: IPRATROPIUM BROM 0.5MG/2.5ML NEB SCH ×4 (02:43→19:35)
[2019-02-06] MEDS: ALBUTEROL 2.5 MG/3 ML NEB SOL NEB SCH ×4 (02:43→19:35)
[2019-02-06] MEDS: MORPHINE 2 MG/ML SYR IV PRN ×2 (03:50→12:02)
[2019-02-06 05:59] LABS: Absolute Lymphocytes (CBC) 1.3 K/uL (0.7-4.9); Basophils % 0.1 % (0-1.3); Hematocrit 34.5 % (39.6-49.0); Lymphocytes % 14.9 % (15.3-44.8); MPV 7.5 fL (7.6-11.3); RBC Red Blood Cell Count 3.76 M/uL (4.33-5.43)
[2019-02-06 06:07] LABS: BUN Blood Urea Nitrogen 7 mg/dL (7-18); Bicarbonate 16 mmol/L (21-32); Glucose Level 224 mg/dL (74-106); Magnesium 1.8 mg/dL (1.8-2.4); Potassium 3.3 mmol/L (3.5-5.1); Sodium Level 135 mmol/L (136-145)
[2019-02-06] MEDS: NA CHLORIDE 0.9% 1,000 ML IV SCH ×2 (06:42→14:54)
[2019-02-06] MEDS ORDERED: Magnesium Sulfate 2gm IVPB 2 G/50 ML BAG IV ONE (09:00)
[2019-02-06] MEDS: DULOXETINE 30 MG CAP PO SCH ×2 (09:19→21:22)
[2019-02-06] MEDS: ENOXAPARIN 40 MG/0.4 ML SQ SCH (09:20)
[2019-02-06] MEDS: OSELTAMIVIR 75 MG CAP PO SCH ×2 (09:20→21:22)
[2019-02-06] MEDS: INSULIN GLARGINE 100 UNITS/ML SQ SCH ×2 (09:20→21:22)
[2019-02-06] MEDS: INSULIN -REGULAR HUMAN 50 UNIT/0.5 ML ML SQ SCH ×4 (09:21→21:00)
[2019-02-06] MEDS: GUAIFENESIN/DM 5 ML UCUP PO PRN (09:30)
[2019-02-06] MEDS ORDERED: VANCOMYCIN 1.25 GM in NA CHLORIDE 0.9% 250 ML IVPB SCH (14:00)
[2019-02-06] MEDS: VANCOMYCIN 1.25 GM in NA CHLORIDE 0.9% 250 ML IVPB SCH (14:11)
[2019-02-06] MEDS ORDERED: POTASSIUM CL SA 10 MEQ TAB PO ONE (14:16)
[2019-02-06] MEDS ORDERED: ACETAMINOPHEN 500 MG TAB PO PRN (15:02)
[2019-02-06 15:37] VITALS: O2SAT 98
[2019-02-06] MEDS: Levofloxacin 750mg IV 750 MG/150 ML BAG IV SCH (16:46)
--- NOTE | 2019-02-06 17:37 | PN ---
Date of Progress Note: 02/06/2019 Subjective: Patient was seen and examined. Chart reviewed and case discussed with RN. Patient is still having some shortness of breath along with some cough without much sputum production. Medications: List reviewed. Physical Examination: Vital Signs: Temperature 97.8, heart rate 115, blood pressure 129/71, respirations 18, O2 97% on room air. General: Awake, alert, oriented x3, in some mild distress. CV: S1, S2. Sinus tachycardia. Peripheral pulses present. Respiratory: Diminished breath sounds. No wheezing or stridor. Gastrointestinal: Abdomen is soft, nontender, nondistended. Positive bowel sounds. Extremities: No clubbing, cyanosis, or edema. Neurologic: Nonfocal. Cranial nerves 2 through 12 intact grossly. No focal neurological deficits. Speech is normal. Laboratory Data: Sodium 135, potassium 3.3, chloride 102, CO2 of 16, BUN 7, creatinine 0.56, glucose 224, calcium 8.5, magnesium 1.8. WBC 8.5, H and H 12.1 , 34.5, platelets 255, neutrophils 73%. Blood cultures 2/4 bottles growing out Staph coagulase positive. Assessment And Plan: A 23-year-old male with: 1. Diabetic ketoacidosis. Patient has a history of diabetes, has insulin pump. Anion gap is now closed, off insulin drip. Continue with Lantus b.i.d. and sliding scale insulin. We will continue to monitor blood glucose levels. 2. Left lower lobe pneumonia. Continue IV antibiotics. Blood cultures now positive for gram-positive cocci, possibly methicillin-resistant Staphylococcus aureus or streptococcus. We will continue with IV antibiotics. Continue breathing treatments. 3. History of fibromyalgia. Patient is undergoing evaluation by Neurology. 4. Non-intractable nausea and vomiting, resolved. 5. Tachycardia, possibly sepsis related. Continue with IV fluids and we will continue to monitor. 6. Hypokalemia. We will replace and monitor. 7. Hypomagnesemia, corrected. We will continue to monitor magnesium level. 8. Deep vein thrombosis prophylaxis. SCDs. Continue with ambulation. 9. Possible bacteremia, gram positive cocci. We will continue with IV antibiotics until ID and sensitivity is available. Consider ID consultation depending on culture results, may need long-term IV antibiotics for minimum of 2 weeks. ADDENDUM: Patient complained of burning pain in his legs. Likely from diabetic neuropathy. Add lyrica. Patient states morphine is not helping. DC IV morphine. He has neuropathic pain to which opiates do not respond well SA/MODL Voice ID: [id number] Report ID: [id number]
[2019-02-06] MEDS: HYDROCODONE/APAP 7.5/325 MG TAB PO PRN (19:29)
[2019-02-06] MEDS: PREGABALIN 75 MG CAP PO SCH (21:22)
[2019-02-07] MEDS: NA CHLORIDE 0.9% 1,000 ML IV SCH ×2 (01:00→11:00)
[2019-02-07] MEDS: VANCOMYCIN 1.25 GM in NA CHLORIDE 0.9% 250 ML IVPB SCH (01:03)
[2019-02-07] MEDS: IPRATROPIUM BROM 0.5MG/2.5ML NEB SCH ×2 (01:40→08:20)
[2019-02-07] MEDS: ALBUTEROL 2.5 MG/3 ML NEB SOL NEB SCH ×2 (01:40→08:20)
[2019-02-07 05:44] LABS: Absolute Lymphocytes (CBC) 1.5 K/uL (0.7-4.9); Basophils % 0.2 % (0-1.3); Hematocrit 35.8 % (39.6-49.0); Lymphocytes % 19.1 % (15.3-44.8); MPV 6.6 fL (7.6-11.3); RBC Red Blood Cell Count 3.93 M/uL (4.33-5.43)
[2019-02-07 05:57] LABS: BUN Blood Urea Nitrogen 4 mg/dL (7-18); Bicarbonate 26 mmol/L (21-32); Glucose Level 167 mg/dL (74-106); Magnesium 1.7 mg/dL (1.8-2.4); Sodium Level 135 mmol/L (136-145)
[2019-02-07 05:58] LABS: Potassium 2.9 mmol/L (3.5-5.1)
[2019-02-07] MEDS ORDERED: MAGNESIUM SULFATE 1 gm IVPB 1 GM/100 ML BAG IV ONE (07:30)
[2019-02-07] MEDS: KCL 20 MEQ/100 mL IVPB 20 MEQ/100 ML BAG IV SCH ×3 (09:06→12:30)
[2019-02-07] MEDS: ENOXAPARIN 40 MG/0.4 ML SQ SCH (09:07)
[2019-02-07] MEDS: OSELTAMIVIR 75 MG CAP PO SCH (09:07)
[2019-02-07] MEDS: PREGABALIN 75 MG CAP PO SCH (09:07)
[2019-02-07] MEDS: HYDROCODONE/APAP 7.5/325 MG TAB PO PRN (09:07)
[2019-02-07] MEDS: DULOXETINE 30 MG CAP PO SCH (09:07)
[2019-02-07] MEDS: INSULIN GLARGINE 100 UNITS/ML SQ SCH (09:08)
[2019-02-07] MEDS: INSULIN -REGULAR HUMAN 50 UNIT/0.5 ML ML SQ SCH ×2 (09:08→12:25)
--- NOTE | 2019-02-07 11:12 | P.DS ---
Admission Date: 02/04/19 Discharge Date: 02/07/19 Primary Care Provider: Dr. Mcgill; Endocrinology-Dr. England Disposition: ROUTINE DISCHARGE Discharge Condition: GOOD Reason for Admission: DKA Consultations: none Procedures: CXR: COMPARISON: February 02 TECHNIQUE: AP portable chest image was obtained 1206 hours . FINDINGS: Lung volumes are normal. There is no dense consolidation. However, patchy alveolar opacities are present in the lower left lung field. This is new from prior imaging. Heart and vasculature are normal. No measurable pleural effusion and no pneumothorax. No acute bony abnormality seen. No acute aortic findings suspected. IMPRESSION: Patchy pneumonia in the left lower lung field new from February 02 Medical Problem list: Diabetic ketoacidosis resolved with history of diabetes mellitus type 1 with insulin pump Left lower lobe pneumonia complicated with influenza A Bacteremia with culture positive for Staph aureus Nausea and vomiting resolved Hypokalemia and hypomagnesia secondary to dehydration History of fibromyalgia Brief History of Present Illness: 23-year-old male with history of diabetes mellitus type 1 on insulin pump. Patient had reported increased fatigue and weakness. He was evaluated emergency room was found to be positive for influenza. Patient was given Tamiflu and sent home. He did not feel any better and came back to the ER. He was found to be in DKA. Patient was admitted for further evaluation and treatment. Hospital Course: Patient was seen prior to admission for influenza A. Patient was started on medication. Unfortunately he continued to have more difficulty with nausea and vomiting. Patient was reassessed in the emergency room. He was found to have DKA. Left lower lobe pneumonia was identified. Patient was treated for DKA, influenza and pneumonia. Patient has significantly improved. DKA has resolved. Patient has done well with influenza and pneumonia treatment. Bacteremia identified. Patient was also found to have 2/4 blood cultures positive for Staph aureus. At discharge he is without significant shortness of breath. Patient no longer requiring oxygen. At discharge patient will continue with Tamiflu 75 mg twice daily for 3 more days and Levaquin 500 mg daily for 10 days. Tessalon Perles 100 mg 3 times a day as needed for cough and Mucinex 600 mg twice daily for congestion will be provided. Patient will also be provided Pro air 2 puffs 3 times a day as needed for shortness of breath. Repeat blood cultures have been obtained prior to discharge. Recommend follow up with PCP in 1-2 weeks to follow up this hospitalization. As mentioned above patient with diabetes type 1. Hemoglobin A1c 7.5. At discharge patient will continue with his insulin pump regimen. Recommend follow up with Endocrinology in 1-2 weeks to follow up this hospitalization. Patient with fibromyalgia. At discharge patient may continue with his current medications of Valium, and gabapentin, meloxicam, and muscle relaxer. Will recommend to discontinue diclofenac as the patient is using meloxicam as needed. Will recommend to discontinue methocarbamol since the patient is taking Zanaflex. Recommend follow up with pain management as an outpatient to further address and treat. Vital Signs/Physical Exam: Temp Pulse Resp BP Pulse Ox 98.0 F 101 H 18 151/79 H 100 02/07/19 08:00 02/07/19 08:00 02/07/19 09:07 02/07/19 08:00 02/07/19 09:07 General: Alert, In no apparent distress, Oriented x3, Cooperative HEENT: Atraumatic Neck: Supple Respiratory: Clear to auscultation bilaterally, Normal air movement Cardiovascular: Normal pulses, Regular rate/rhythm Gastrointestinal: Normal bowel sounds, Soft and benign, Non-distended Musculoskeletal: No erythema, No tenderness, No warmth Integumentary: No tenderness/swelling, No erythema, No warmth, No cyanosis Neurological: Normal speech, Normal strength at 5/5 x4 extr, Normal tone Laboratory Data at Discharge: WBC 8.1 K/uL (4.3-10.9) 02/07/19 05:27 Hgb 12.7 g/dL (13.6-17.9) L 02/07/19 05:27 Hct 35.8 % (39.6-49.0) L 02/07/19 05:27 Plt Count 372 K/uL (152-406) D 02/07/19 05:27 Sodium 135 mmol/L (136-145) L 02/07/19 05:27 Potassium 2.9 mmol/L (3.5-5.1) L* 02/07/19 05:27 BUN 4 mg/dL (7-18) L 02/07/19 05:27 Creatinine 0.66 mg/dL (0.55-1.3) 02/07/19 05:27 Glucose 167 mg/dL (74-106) H 02/07/19 05:27 Magnesium 1.7 mg/dL (1.8-2.4) L 02/07/19 05:27 Total Bilirubin 0.5 mg/dL (0.2-1.0) 02/04/19 12:00 AST 16 U/L (15-37) 02/04/19 12:00 ALT 23 U/L (12-78) 02/04/19 12:00 Alkaline Phosphatase 88 U/L (45-117) 02/04/19 12:00 Home Medications: Gabapentin 1 tab PO DAILY 02/04/19 Insulin Lispro [Humalog*] See Protocol 02/04/19 Meloxicam 1 tab PO DAILY PRN 02/04/19 Methocarbamol 1 tab PO Q8H PRN 02/04/19 Tizanidine HCl 1 tab PO Q8H PRN 02/04/19 diazePAM [Diazepam] 1 tab PO Q8H PRN 02/04/19 Albuterol Sulfate [Proair Hfa] 2 puff IH TID PRN #1 hfa.aer.ad 02/07/19 Benzonatate [Tessalon Perle] 100 mg PO TID PRN #15 cap 02/07/19 Guaifenesin [Mucinex] 600 mg PO BID PRN #15 tab.er.12h 02/07/19 Oseltamivir [Tamiflu*] 75 mg PO BID #6 cap 02/07/19 levoFLOXacin [Levaquin] 500 mg PO DAILY #10 tab 02/07/19 New Medications: Albuterol Sulfate [Proair Hfa] 2 puff IH TID PRN #1 hfa.aer.ad PRN Reason: Shortness Of Breath Benzonatate [Tessalon Perle] 100 mg PO TID PRN #15 cap PRN Reason: Cough Guaifenesin [Mucinex] 600 mg PO BID PRN #15 tab.er.12h PRN Reason: Cough levoFLOXacin [Levaquin] 500 mg PO DAILY #10 tab Oseltamivir [Tamiflu*] 75 mg PO BID #6 cap Patient Discharge Instructions: 1. Recommend follow up with PCP in 1 week to follow up this hospitalization. 2. Patient was seen prior to admission for influenza A. Patient was started on medication. Unfortunately he continued to have more difficulty with nausea and vomiting. Patient was reassessed in the emergency room. He was found to have DKA. Left lower lobe pneumonia was identified. Patient was treated for DKA, influenza and pneumonia. Patient has significantly improved. DKA has resolved. Patient has done well with influenza and pneumonia treatment. Bacteremia identified. Patient was also found to have 2/4 blood cultures positive for Staph aureus. At discharge he is without significant shortness of breath. Patient no longer requiring oxygen. At discharge patient will continue with Tamiflu 75 mg twice daily for 3 more days and Levaquin 500 mg daily for 10 days. Tessalon Perles 100 mg 3 times a day as needed for cough and Mucinex 600 mg twice daily for congestion will be provided. Patient will also be provided Pro air 2 puffs 3 times a day as needed for shortness of breath. Repeat blood cultures have been obtained prior to discharge. Recommend follow up with PCP in 1-2 weeks to follow up this hospitalization. 3. As mentioned above patient with diabetes type 1. Hemoglobin A1c 7.5. At discharge patient will continue with his insulin pump regimen. Recommend follow up with Endocrinology in 1-2 weeks to follow up this hospitalization. 4. Patient with fibromyalgia. At discharge patient may continue with his current medications of Valium, and gabapentin, meloxicam, and muscle relaxer. Will recommend to discontinue diclofenac as the patient is using meloxicam as needed. Will recommend to discontinue methocarbamol since the patient is taking Zanaflex. Recommend follow up with pain management as an outpatient to further address and treat. Diet: ADA Activity: Ad adolfo Time spent managing pt's care (in minutes): 55
[2019-02-07 14:00] VITALS: BP 137/83; TEMP 97.6
== END 2019-02-07 15:19 | disposition home or self-care (01) | DRG 637 ==
LOC: ER 11:26 → ERHOLD 15:06 → 3RD-ICU 15:41 → 2ND 02-05 14:40
PROVIDERS: ADMIT Internal Medicine; ATTEND Family Medicine
DX: E10.10 Type 1 diabetes mellitus with ketoacidosis without coma (principal); J18.9 Pneumonia, unspecified organism; R78.81 Bacteremia; E10.40 Type 1 diabetes mellitus with diabetic neuropathy, unspecified; E06.3 Autoimmune thyroiditis; M79.7 Fibromyalgia; Z79.4 Long term (current) use of insulin; J09.X2 Influenza due to identified novel influenza A virus with other respiratory manifestations; E87.6 Hypokalemia; E83.42 Hypomagnesemia; B95.61 Methicillin susceptible Staphylococcus aureus infection as the cause of diseases classified elsewhere
CPT/HCPCS: 36415; 71045; 71046; 80048; 80076; 81003; 82010; 82805; 82947; 83036; 83605; 83735; 84132; 84484; 85025; 87040; 87077; 87086; 87088; 87186; 87205; 93005; 94640; 99285; J0456; J0696; J1650; J1815; J2270; J2405; J3475; J7030